=== PATIENT | male | born 1955 | race Caucasian/White ===

== ENCOUNTER 2018-06-13 12:57 | Outpatient (RCR) | payer SELFPAY ==
[~2018-06-13 12:57] MED LIST: CPR500T PO; CYCL10TA9 PO; DENOSUMAB 120 MG/1.7 ML (XGEVA) SQ SCH; HYDR1TAB8 OP; NAPR220T76
[2018-06-13 13:31] LABS: BASOPHILS % (AUTO) 0 % (0-10); EOSINOPHILS # (AUTO) 0.2 10^3/uL (0.0-0.3); EOSINOPHILS % (AUTO) 3 % (0-10); HEMATOCRIT 38 % (40-54); LYMPHOCYTES # (AUTO) 1.2 X 10^3 (1.0-4.0); LYMPHOCYTES % (AUTO) 25 % (12-44); MEAN CORPUSCULAR HEMOGLOBIN 30 PG (25-34); MEAN CORPUSCULAR HGB CONC 34 G/DL (32-36); MEAN CORPUSCULAR VOLUME 87 FL (80-99); MEAN PLATELET VOLUME 9.8 FL (7.4-10.4); MONOCYTES # (AUTO) 0.3 X 10^3 (0.0-1.0); MONOCYTES % (AUTO) 7 % (0-12); NEUTROPHILS % (AUTO) 64 % (42-75); PLATELET COUNT 191 10^3/uL (130-400); RED BLOOD COUNT 4.37 10^6/uL (4.35-5.85); RED CELL DISTRIBUTION WIDTH 15.4 % (10.0-14.5); WHITE BLOOD COUNT 4.7 10^3/uL (4.3-11.0)
[2018-06-13 13:51] LABS: ALANINE AMINOTRANSFERASE 18 U/L (0-55); ALKALINE PHOSPHATASE 102 U/L (40-136); BILIRUBIN,TOTAL 0.3 MG/DL (0.1-1.0); BUN/CREATININE RATIO 29; CALCIUM 8.8 MG/DL (8.5-10.1); CARBON DIOXIDE 23 MMOL/L (21-32); CHLORIDE 111 MMOL/L (98-107); CREATININE SERUM 0.65 MG/DL (0.60-1.30); GFR ESTIMATED > 60; GLUCOSE 117 MG/DL (70-105); POTASSIUM 4.4 MMOL/L (3.6-5.0); SODIUM 141 MMOL/L (135-145); TOTAL PROTEIN 6.6 GM/DL (6.4-8.2)
== END 2018-06-23 | disposition home or self-care (01) ==
LOC: ONC 12:57
PROVIDERS: ATTEND Internal Medicine Hematology & Oncology
DX: C61 Malignant neoplasm of prostate (principal); C79.51 Secondary malignant neoplasm of bone; R59.1 Generalized enlarged lymph nodes; R91.8 Other nonspecific abnormal finding of lung field; J84.10 Pulmonary fibrosis, unspecified; Z79.899 Other long term (current) drug therapy
CPT/HCPCS: 80053; 84153; 85025; 99213

== ENCOUNTER 2018-08-21 14:08 | Outpatient (RCR) | payer MEDICAID ==
[~2018-08-21 14:08] MED LIST changes: +[UNRECOGNIZED DRUG - REMARK] SQ SCH
[2018-08-21 14:18] LABS: BASOPHILS % (AUTO) 0 % (0-10); EOSINOPHILS # (AUTO) 0.1 10^3/uL (0.0-0.3); EOSINOPHILS % (AUTO) 1 % (0-10); HEMATOCRIT 42 % (40-54); HEMOGLOBIN 14.7 G/DL (13.3-17.7); LYMPHOCYTES # (AUTO) 1.4 X 10^3 (1.0-4.0); LYMPHOCYTES % (AUTO) 19 % (12-44); MEAN CORPUSCULAR HEMOGLOBIN 30 PG (25-34); MEAN CORPUSCULAR HGB CONC 35 G/DL (32-36); MEAN CORPUSCULAR VOLUME 86 FL (80-99); MEAN PLATELET VOLUME 9.4 FL (7.4-10.4); MONOCYTES # (AUTO) 0.6 X 10^3 (0.0-1.0); MONOCYTES % (AUTO) 7 % (0-12); NEUTROPHILS # (AUTO) 5.3 X 10^3 (1.8-7.8); NEUTROPHILS % (AUTO) 72 % (42-75); PLATELET COUNT 223 10^3/uL (130-400); RED BLOOD COUNT 4.89 10^6/uL (4.35-5.85); RED CELL DISTRIBUTION WIDTH 14.7 % (10.0-14.5); WHITE BLOOD COUNT 7.4 10^3/uL (4.3-11.0)
[2018-08-21 14:40] LABS: ALANINE AMINOTRANSFERASE 19 U/L (0-55); ALBUMIN 4.4 GM/DL (3.2-4.5); ALKALINE PHOSPHATASE 89 U/L (40-136); BILIRUBIN,TOTAL 0.4 MG/DL (0.1-1.0); BUN/CREATININE RATIO 18; CALCIUM 9.1 MG/DL (8.5-10.1); CARBON DIOXIDE 24 MMOL/L (21-32); CHLORIDE 107 MMOL/L (98-107); CREATININE SERUM 0.67 MG/DL (0.60-1.30); GFR ESTIMATED > 60; GLUCOSE 96 MG/DL (70-105); POTASSIUM 4.2 MMOL/L (3.6-5.0); SODIUM 139 MMOL/L (135-145); TOTAL PROTEIN 7.3 GM/DL (6.4-8.2)
[2018-09-13] MEDS ORDERED: BENZ-13 PO (16:48)
[2018-09-13] MEDS ORDERED: PRD20T PO (16:48)
[2018-09-13] MEDS ORDERED: IPRA3AMP31 IH (16:48)
== END 2018-09-19 14:44 | disposition home or self-care (01) ==
LOC: ONC 14:08
PROVIDERS: ATTEND Internal Medicine Hematology & Oncology
DX: C61 Malignant neoplasm of prostate (principal); C79.51 Secondary malignant neoplasm of bone; Z79.899 Other long term (current) drug therapy
CPT/HCPCS: 36415; 80053; 84153; 85025; 96372; 96402

== ENCOUNTER 2018-09-13 14:37 | Emergency (ER) | payer MEDICAID, OTHER ==
[~2018-09-13] VITALS: Ht 182.9 cm; Wt 81.6 kg
[~2018-09-13 14:37] MED LIST changes: -DENOSUMAB 120 MG/1.7 ML (XGEVA) SQ SCH; -[UNRECOGNIZED DRUG - REMARK] SQ SCH
--- NOTE | 2018-09-13 15:36 | Diagnostic Imaging Report ---
INDICATION: Shortness of air. TIME OF EXAM: 03:47 p.m. Correlation is made with prior study from 03/22/2009. FINDINGS: The lungs are hyperinflated consistent with COPD. No definite infiltrate is identified. No effusion or pneumothorax is seen. The heart size is stable. IMPRESSION: COPD. No acute feature is detected. Dictated by: Dictated on workstation # [id number]
--- NOTE | 2018-09-13 15:43 | ED Cough/URI ---
General Chief Complaint: Respiratory Problems Stated Complaint: POSS PNEUMONIA Nursing Triage Note: THE PT IS AMBULATORY TO THE ROOM WITHOUT DIFFICULTY. NO DISTRESS IS SEEN ON ARRIVAL. LOC IS NORMAL FOR THE. History of Present Illness Date Seen by Provider: Sep 13, 2018 Time Seen by Provider: 15:30 Initial Comments 63-year-old male reports for cough and SOA. He has a history of prostate cancer and is being treated with oral chemotherapy. He reports over the last 3-4 days progressive weakness. He denies fever. His cough has been productive at times. Timing/Duration: changing over time Severity/Quality: dry cough, productive cough Prior Episodes/Possible Cause: occasional episodes Associated Symptoms: cough, nasal congestion, shortness of breath Allergies and Home Medications Allergies Uncoded Allergies: [id number] (NO ALLERGY INFORMATION) (Allergy, Mild, 03/22/09) Home Medications Benzonatate 100 Mg Capsule, 100 MG PO Q8H PRN for COUGH Prescribed by: CHEMA MAHONEY on 09/13/188 Ciprofloxacin 500 Mg Tablet, 1 TAB PO BID FOR INFECTION Prescribed by: ELANA GIBSON on 03/22/09 1543 Cyclobenzaprine Hcl 10 Mg Tablet, 1 EACH PO TID PRN FOR MUSCLE SPASMS Prescribed by: ELANA GIBSON on 03/22/09 1543 Hydrocodone Bit/Ibuprofen 1 Each Tablet, 1 EACH OP Q 4 - 6 HRS PRN FOR PAIN Prescribed by: ELANA GIBSON on 03/22/09 1543 Ipratropium/Albuterol Sulfate 3 Ml Ampul.neb, 3 ML IH Q4H PRN for SHORTNESS OF BREATH Prescribed by: CHEMA MAHONEY on 09/13/181647 Prednisone 20 Mg Tab, 20 MG PO DAILY Prescribed by: CHEMA MAHONEY on 09/13/18 1648 Patient Home Medication List Home Medication List Reviewed: Yes Review of Systems Review of Systems Constitutional: no symptoms reported, see HPI Respiratory: see HPI, cough, dyspnea on exertion All Other Systems Reviewed Negative Unless Noted: Yes Past Wrdrkft-Yxrmcx-Dsothm Hx Past Med/Social Hx: Reviewed Nursing Past Med/Soc Hx Patient Social History Recent Foreign Travel: No Contact w/Someone Who Travel: No Recent Infectious Disease Expo: No Physical Exam Vital Signs - First Documented 09/13/18 09/13/18 15:15 16:14 Temp 98.6 Pulse 96 Resp 20 B/P (MAP) 180/100 (126) Pulse Ox 88 O2 Delivery Room Air O2 Flow Rate 1.00 Capillary Refill : Less Than 3 Seconds Height: 6'0" Weight: 180lbs. oz. [id number]; BMI Method:Estimated General Appearance: WD/WN, no apparent distress Eyes: Bilateral Eye Normal Inspection, Bilateral Eye PERRL, Bilateral Eye EOMI HEENT: PERRL/EOMI, normal ENT inspection, TMs normal, pharynx normal Neck: non-tender, full range of motion, supple, normal inspection Respiratory: chest non-tender, no respiratory distress, wheezing (expiratory) Cardiovascular: normal peripheral pulses, regular rate, rhythm Gastrointestinal: normal bowel sounds, non tender, soft Neurologic/Psychiatric: no motor/sensory deficits, alert, normal mood/affect, oriented x 3 Skin: normal color, warm/dry Progress/Results/Core Measures Suspected Sepsis Recent Fever Within 48 Hours: No Infection Criteria Present: None New/Unexplained Altered Menta: No Sepsis Screen: No Definite Risk SIRS Temperature:98.6 Pulse: 96 Respiratory Rate: 20 Laboratory Tests 09/13/18 15:40: White Blood Count 5.2 Blood Pressure 180 /100 Mean: 126 Laboratory Tests 09/13/18 15:40: Creatinine 0.78, Platelet Count 200, Total Bilirubin 0.5 Results/Orders Lab Results Laboratory Tests Test 09/13/18 15:40 Range/Units White Blood Count 5.2 4.3-11.0 10^3/uL Red Blood Count 4.96 4.35-5.85 10^6/uL Hemoglobin 14.6 13.3-17.7 G/DL Hematocrit 43 40-54 % Mean Corpuscular Volume 87 80-99 FL Mean Corpuscular Hemoglobin 29 25-34 PG Mean Corpuscular Hemoglobin Concent 34 32-36 G/DL Red Cell Distribution Width 14.9 H 10.0-14.5 % Platelet Count 200 130-400 10^3/uL Mean Platelet Volume 9.6 7.4-10.4 FL Neutrophils (%) (Auto) 71 42-75 % Lymphocytes (%) (Auto) 14 12-44 % Monocytes (%) (Auto) 13 H 0-12 % Eosinophils (%) (Auto) 3 0-10 % Basophils (%) (Auto) 0 0-10 % Neutrophils # (Auto) 3.7 1.8-7.8 X 10^3 Lymphocytes # (Auto) 0.7 L 1.0-4.0 X 10^3 Monocytes # (Auto) 0.7 0.0-1.0 X 10^3 Eosinophils # (Auto) 0.1 0.0-0.3 10^3/uL Basophils # (Auto) 0.0 0.0-0.1 10^3/uL Sodium Level 137 135-145 MMOL/L Potassium Level 4.2 3.6-5.0 MMOL/L Chloride Level 105 98-107 MMOL/L Carbon Dioxide Level 22 21-32 MMOL/L Anion Gap 10 5-14 MMOL/L Blood Urea Nitrogen 17 7-18 MG/DL Creatinine 0.78 0.60-1.30 MG/DL Estimat Glomerular Filtration Rate > 60 BUN/Creatinine Ratio 22 Glucose Level 102 70-105 MG/DL Calcium Level 8.6 8.5-10.1 MG/DL Corrected Calcium 8.2 L 8.5-10.1 MG/DL Total Bilirubin 0.5 0.1-1.0 MG/DL Aspartate Amino Transf (AST/SGOT) 18 5-34 U/L Alanine Aminotransferase (ALT/SGPT) 17 0-55 U/L Alkaline Phosphatase 105 40-136 U/L Total Protein 7.5 6.4-8.2 GM/DL Albumin 4.5 3.2-4.5 GM/DL My Orders Orders - CHEMA MAHONEY Chest Pa/Lat (2 View) (09/13/18 15:14) Cbc With Automated Diff (09/13/18 15:14) Comprehensive Metabolic Panel (09/13/18 15:14) Albuterol/Ipra Inhalation Soln (Duoneb I (09/13/18 16:15) Svn Small Volume Nebulizer (09/13/18 16:08) Dexamethasone Injection (Decadron Inject (09/13/18 16:15) Medications Given in ED Current Medications Medications Dose Ordered Sig/Taryn Route Start Time Stop Time Status Last Admin Dose Admin Albuterol/ Ipratropium 3 ml ONCE ONCE INH 09/13/18 16:15 09/13/18 16:16 DC 09/13/18 16:13 3 ML Dexamethasone Sodium Phosphate 10 mg ONCE ONCE IV 09/13/18 16:15 12/21/18 16:16 DC 09/13/18 16:26 10 MG Vital Signs/I&O 09/13/18 09/13/18 09/13/18 15:15 16:14 17:16 Temp 98.6 98.6 Pulse 96 95 Resp 20 18 B/P (MAP) 180/100 (126) 170/88 (115) Pulse Ox 88 95 95 O2 Delivery Room Air Nasal Cannula O2 Flow Rate 1.00 Capillary Refill : Less Than 3 Seconds Blood Pressure Mean: 126 Progress Note : Time: 15:30 Progress Note Patient seen and evaluated, room air SaO2 88%, placed on O2 per nasal cannula at 2 L. Immediately improved SaO2 95%. Will obtain labs and chest x-ray. 1600 RT for DuoNeb treatment. Decadron 10 mg IV 1620 improved breath sounds with less wheezing. Patient denies chest tightness. O2 per nasal cannula decreased to 1 L, maintaining SaO2 greater than 92%. 1645 O2 per nasal cannula discontinued, maintaining SaO2 greater than 94% with conversation. Discharge instructions and return precautions reviewed with the patient and his . He will continue on DuoNeb treatments at home, he has a nebulizer machine. Diagnostic Imaging Diagonstic Imaging: Xray Plain Films/CT/US/NM/MRI: chest Comments NAME: [facility] REC#: [id number] PT STATUS: REG ER : 1955 PHYSICIAN: CHEMA MAHONEY ADMIT DATE: 09/13/18/ER Draft Date of Exam:09/13/18 CHEST PA/LAT (2 VIEW) INDICATION: Shortness of air. TIME OF EXAM: 03:47 p.m. Correlation is made with prior study from 03/22/2009. FINDINGS: The lungs are hyperinflated consistent with COPD. No definite infiltrate is identified. No effusion or pneumothorax is seen. The heart size is stable. IMPRESSION: COPD. No acute feature is detected. Dictated on workstation # [id number] Dict: 09/13/18 1531 Trans: 09/13/18 1535 [id number] Interpreted by: JO FINN MD Electronically signed by: Departure Impression Primary Impression: Bronchitis Disposition: 01 HOME, SELF-CARE Condition: Improved Departure-Patient Inst. Decision time for Depature: 16:40 Referrals: RAY,TJ C MD (PCP) Primary Care Physician Patient Instructions: Acute Bronchitis, Adult (DC) Add. Discharge Instructions: Take medication as prescribed. Follow-up with your primary care provider in 2-3 days if symptoms are not improving or worsen. Increase your food and water intake. You may use Tylenol 650 mg alternating with ibuprofen 600 mg every 4 hours for fever or pain. Return to emergency department if difficulty breathing, symptoms worsen, fever greater than 101 not relieved by Tylenol or ibuprofen, or new problems. All discharge instructions reviewed with patient and/or family. Voiced understanding. Scripts Ipratropium/Albuterol Sulfate (Iprat-Albut 0.5-3(2.5) mg/3 ml) 3 Ml Ampul.neb 3 ML IH Q4H PRN for SHORTNESS OF BREATH, #28 EACH 2 Refills Prov: CHEMA MAHONEY 09/13/18 Benzonatate (Tessalon Perle) 100 Mg Capsule 100 MG PO Q8H PRN for COUGH, #12 CAP 0 Refills Prov: CHEMA MAHONEY 09/13/18 Prednisone (Prednisone) 20 Mg Tab 20 MG PO DAILY, #18 TAB 0 Refills Prov: CHEMA MAHONEY 09/13/18 CHEMA MAHONEY Sep 13, 2018 15:43
[2018-09-13 15:45] LABS: BASOPHILS % (AUTO) 0 % (0-10); EOSINOPHILS # (AUTO) 0.1 10^3/uL (0.0-0.3); EOSINOPHILS % (AUTO) 3 % (0-10); HEMATOCRIT 43 % (40-54); HEMOGLOBIN 14.6 G/DL (13.3-17.7); LYMPHOCYTES # (AUTO) 0.7 X 10^3 (1.0-4.0); LYMPHOCYTES % (AUTO) 14 % (12-44); MEAN CORPUSCULAR HEMOGLOBIN 29 PG (25-34); MEAN CORPUSCULAR HGB CONC 34 G/DL (32-36); MEAN CORPUSCULAR VOLUME 87 FL (80-99); MEAN PLATELET VOLUME 9.6 FL (7.4-10.4); MONOCYTES # (AUTO) 0.7 X 10^3 (0.0-1.0); MONOCYTES % (AUTO) 13 % (0-12); NEUTROPHILS # (AUTO) 3.7 X 10^3 (1.8-7.8); NEUTROPHILS % (AUTO) 71 % (42-75); PLATELET COUNT 200 10^3/uL (130-400); RED BLOOD COUNT 4.96 10^6/uL (4.35-5.85); RED CELL DISTRIBUTION WIDTH 14.9 % (10.0-14.5); WHITE BLOOD COUNT 5.2 10^3/uL (4.3-11.0)
[2018-09-13 16:04] LABS: ALANINE AMINOTRANSFERASE 17 U/L (0-55); ALBUMIN 4.5 GM/DL (3.2-4.5); ALKALINE PHOSPHATASE 105 U/L (40-136); BILIRUBIN,TOTAL 0.5 MG/DL (0.1-1.0); BUN/CREATININE RATIO 22; CALCIUM 8.6 MG/DL (8.5-10.1); CARBON DIOXIDE 22 MMOL/L (21-32); CHLORIDE 105 MMOL/L (98-107); CREATININE SERUM 0.78 MG/DL (0.60-1.30); GFR ESTIMATED > 60; GLUCOSE 102 MG/DL (70-105); POTASSIUM 4.2 MMOL/L (3.6-5.0); SODIUM 137 MMOL/L (135-145); TOTAL PROTEIN 7.5 GM/DL (6.4-8.2)
[2018-09-13] MEDS: RT-ALBUTEROL/IPRATROPIUM 3 ML (DUONEB) VIAL INH ONE (16:13)
[2018-09-13] MEDS: DEXAMETHASONE 10 MG/ML (DECADRON) 1 ML VIAL IV ONE (16:26)
[2018-09-13] MEDS ORDERED: IPRA3AMP31 IH (16:48)
[2018-09-13] MEDS ORDERED: PRD20T PO (16:48)
[2018-09-13] MEDS ORDERED: BENZ-13 PO (16:48)
[2018-09-13 17:16] VITALS: BP 170/88
== END 2018-09-13 17:00 | disposition home or self-care (01) ==
LOC: EDUNIT# 14:37 → ER 14:38
DX: J40 Bronchitis, not specified as acute or chronic (principal); Z85.46 Personal history of malignant neoplasm of prostate
CPT/HCPCS: 36415; 71046; 80053; 85025; 94640

== ENCOUNTER 2018-12-13 13:01 | Outpatient (RCR) | payer MEDICAID ==
[2018-10-18 10:17] LABS: BASOPHILS % (AUTO) 0 % (0-10); EOSINOPHILS # (AUTO) 0.1 10^3/uL (0.0-0.3); EOSINOPHILS % (AUTO) 2 % (0-10); HEMATOCRIT 42 % (40-54); LYMPHOCYTES # (AUTO) 1.5 X 10^3 (1.0-4.0); LYMPHOCYTES % (AUTO) 22 % (12-44); MEAN CORPUSCULAR HEMOGLOBIN 30 PG (25-34); MEAN CORPUSCULAR HGB CONC 34 G/DL (32-36); MEAN CORPUSCULAR VOLUME 88 FL (80-99); MEAN PLATELET VOLUME 9.8 FL (7.4-10.4); MONOCYTES # (AUTO) 0.7 X 10^3 (0.0-1.0); MONOCYTES % (AUTO) 11 % (0-12); NEUTROPHILS # (AUTO) 4.4 X 10^3 (1.8-7.8); NEUTROPHILS % (AUTO) 65 % (42-75); PLATELET COUNT 207 10^3/uL (130-400); RED CELL DISTRIBUTION WIDTH 13.8 % (10.0-14.5); WHITE BLOOD COUNT 6.7 10^3/uL (4.3-11.0)
[2018-10-18 10:40] LABS: ALANINE AMINOTRANSFERASE 12 U/L (0-55); ALBUMIN 4.4 GM/DL (3.2-4.5); ALKALINE PHOSPHATASE 134 U/L (40-136); BILIRUBIN,TOTAL 0.4 MG/DL (0.1-1.0); BUN/CREATININE RATIO 26; CALCIUM 9.3 MG/DL (8.5-10.1); CARBON DIOXIDE 23 MMOL/L (21-32); CHLORIDE 109 MMOL/L (98-107); CREATININE SERUM 0.73 MG/DL (0.60-1.30); GFR ESTIMATED > 60; GLUCOSE 85 MG/DL (70-105); POTASSIUM 4.8 MMOL/L (3.6-5.0); SODIUM 140 MMOL/L (135-145); TOTAL PROTEIN 7.5 GM/DL (6.4-8.2)
[~2018-12-13 13:01] MED LIST changes: +BENZ-13 PO; +DENOSUMAB 120 MG/1.7 ML (XGEVA) SQ SCH; +IPRA3AMP31 IH; +PRD20T PO; +[UNRECOGNIZED DRUG - REMARK] SQ SCH; +[UNRECOGNIZED DRUG - REMARK] SQ SCH
[2018-12-13 13:19] LABS: BASOPHILS % (AUTO) 0 % (0-10); EOSINOPHILS # (AUTO) 0.1 10^3/uL (0.0-0.3); EOSINOPHILS % (AUTO) 1 % (0-10); HEMATOCRIT 38 % (40-54); HEMOGLOBIN 12.7 G/DL (13.3-17.7); LYMPHOCYTES # (AUTO) 1.7 X 10^3 (1.0-4.0); LYMPHOCYTES % (AUTO) 18 % (12-44); MEAN CORPUSCULAR HEMOGLOBIN 29 PG (25-34); MEAN CORPUSCULAR HGB CONC 33 G/DL (32-36); MEAN CORPUSCULAR VOLUME 87 FL (80-99); MEAN PLATELET VOLUME 9.8 FL (7.4-10.4); MONOCYTES # (AUTO) 0.9 X 10^3 (0.0-1.0); MONOCYTES % (AUTO) 10 % (0-12); NEUTROPHILS # (AUTO) 6.7 X 10^3 (1.8-7.8); NEUTROPHILS % (AUTO) 72 % (42-75); PLATELET COUNT 324 10^3/uL (130-400); RED CELL DISTRIBUTION WIDTH 13.9 % (10.0-14.5); WHITE BLOOD COUNT 9.3 10^3/uL (4.3-11.0)
[2018-12-13 13:40] LABS: ALANINE AMINOTRANSFERASE 14 U/L (0-55); ALBUMIN 4.1 GM/DL (3.2-4.5); ALKALINE PHOSPHATASE 208 U/L (40-136); BILIRUBIN,TOTAL 0.3 MG/DL (0.1-1.0); BUN/CREATININE RATIO 25; CALCIUM 9.1 MG/DL (8.5-10.1); CARBON DIOXIDE 24 MMOL/L (21-32); CHLORIDE 105 MMOL/L (98-107); GFR ESTIMATED > 60; GLUCOSE 95 MG/DL (70-105); SODIUM 138 MMOL/L (135-145); TOTAL PROTEIN 7.3 GM/DL (6.4-8.2)
== END 2018-12-18 | disposition home or self-care (01) ==
LOC: ONC 13:01
PROVIDERS: ATTEND Internal Medicine Hematology & Oncology
DX: C61 Malignant neoplasm of prostate (principal); C79.51 Secondary malignant neoplasm of bone; Z79.899 Other long term (current) drug therapy
CPT/HCPCS: 36415; 80053; 84153; 85025; 96372; 96402

== ENCOUNTER 2019-01-06 14:47 | Inpatient (IN) | payer MEDICAID, OTHER ==
[~2019-01-06] VITALS: Ht 182.9 cm; Wt 58.9 kg
[~2019-01-06 14:47] MED LIST changes: -DENOSUMAB 120 MG/1.7 ML (XGEVA) SQ SCH; -[UNRECOGNIZED DRUG - REMARK] SQ SCH; -[UNRECOGNIZED DRUG - REMARK] SQ SCH
[2019-01-06] MEDS ORDERED: fentaNYL INJECTION 100 MCG/2 ML AMP IVP STA (15:08)
[2019-01-06] MEDS ORDERED: fentaNYL INJECTION 100 MCG/2 ML AMP ONE (15:09)
[2019-01-06] MEDS ORDERED: OXYC-471 PO (15:10)
[2019-01-06] MEDS ORDERED: ONDA8TAB12 PO (15:10)
[2019-01-06] MEDS ORDERED: MORP15TA PO (15:10)
[2019-01-06] MEDS ORDERED: TAMS0.4C98 PO (15:10)
[2019-01-06] MEDS ORDERED: BICA50TA5 (15:10)
[2019-01-06] MEDS ORDERED: FINA5TAB6 PO (15:10)
[2019-01-06] MEDS ORDERED: NS IV 1000 ML 1,000 ML IV STA (15:13)
[2019-01-06 15:16] LABS: BASOPHILS % (AUTO) 0 % (0-10); EOSINOPHILS % (AUTO) 0 % (0-10); HEMATOCRIT 30 % (40-54); HEMOGLOBIN 9.8 G/DL (13.3-17.7); LYMPHOCYTES # (AUTO) 0.8 X 10^3 (1.0-4.0); LYMPHOCYTES % (AUTO) 9 % (12-44); MEAN CORPUSCULAR HEMOGLOBIN 28 PG (25-34); MEAN CORPUSCULAR HGB CONC 32 G/DL (32-36); MEAN CORPUSCULAR VOLUME 87 FL (80-99); MEAN PLATELET VOLUME 9.5 FL (7.4-10.4); MONOCYTES # (AUTO) 1.1 X 10^3 (0.0-1.0); MONOCYTES % (AUTO) 12 % (0-12); NEUTROPHILS # (AUTO) 7.3 X 10^3 (1.8-7.8); NEUTROPHILS % (AUTO) 79 % (42-75); PLATELET COUNT 199 10^3/uL (130-400); RED CELL DISTRIBUTION WIDTH 14.8 % (10.0-14.5); WHITE BLOOD COUNT 9.2 10^3/uL (4.3-11.0)
[2019-01-06 15:26] LABS: INR 1.2 (0.8-1.4); PROTHROMBIN TIME PATIENT 15.4 SEC (12.2-14.7)
[2019-01-06 15:31] LABS: ALANINE AMINOTRANSFERASE 26 U/L (0-55); ALBUMIN 3.2 GM/DL (3.2-4.5); ALKALINE PHOSPHATASE 311 U/L (40-136); BILIRUBIN,TOTAL 0.4 MG/DL (0.1-1.0); BUN/CREATININE RATIO 22; CALCIUM 8.1 MG/DL (8.5-10.1); CARBON DIOXIDE 28 MMOL/L (21-32); CHLORIDE 91 MMOL/L (98-107); CREATININE SERUM 0.64 MG/DL (0.60-1.30); GFR ESTIMATED > 60; GLUCOSE 114 MG/DL (70-105); POTASSIUM 3.7 MMOL/L (3.6-5.0); SODIUM 130 MMOL/L (135-145); TOTAL PROTEIN 6.4 GM/DL (6.4-8.2)
--- NOTE | 2019-01-06 16:13 | Diagnostic Imaging Report ---
INDICATION: Weakness. Frontal chest obtained at 3:56 p.m. is compared to 09/13/2018. FINDINGS: Heart is borderline in size. There is some mild infiltrate in the right lung base, suspect early pneumonia. Left lung is clear. There is no pneumothorax or pleural fluid. IMPRESSION: Mild infiltrate in the right lung base, question pneumonia. Followup is recommended. Dictated by: Dictated on workstation # [id number]
--- NOTE | 2019-01-06 16:18 | ED General ---
General Chief Complaint: General Problems/Pain Stated Complaint: WEAKNESS;CANCER Nursing Triage Note: PT PRESENTS TO ED WITH COMPLAINTS OF LOWER PLEVIC PAIN AND SOA. PT REPROTS INCREASED GENERALIZED WEAKNESS. PT STATES THIS WEEK HE HASNT HARDLY WALKED. Nursing Sepsis Screen: No Definite Risk Source of Information: Patient Exam Limitations: No Limitations History of Present Illness Date Seen by Provider: Jan 06, 2019 Time Seen by Provider: 15:01 Initial Comments Here with report of lower pelvic pain as well as shortness of breath. Increasing weakness over the last week. He is essentially unable to walk currently due to the weakness. Does have prostate cancer and has had therapy previously and he is being evaluated for radiation therapy currently. Went to clinic today but was unable to even stand. On arrival, oxygen saturation was 78 percent on room air. Normal and oxygen. Denies nausea or vomiting. Admits that he has not been eating or drinking well. Timing/Duration: 2-3 Days Severity: Moderate, Severe Associated Systoms: No Chest Pain, No Cough, No Fever/Chills, No Nausea/ Vomiting, No Shortness of Air; Weakness Allergies and Home Medications Allergies Coded Allergies: No Known Drug Allergies (Unverified , 01/06/19) Patient Home Medication List Home Medication List Reviewed: Yes Review of Systems Review of Systems Constitutional: see HPI; No chills, No fever; weakness EENTM: no symptoms reported Respiratory: cough, short of breath Cardiovascular: No chest pain, No edema Gastrointestinal: No abdominal pain; loss of appetite; No nausea, No vomiting Genitourinary: decreased output; No dysuria Musculoskeletal: joint pain, muscle pain Skin: no symptoms reported Psychiatric/Neurological: No Symptoms Reported Hematologic/Lymphatic: No Symptoms Reported All Other Systems Reviewed Negative Unless Noted: Yes Past Mwznbvu-Aneiyo-Hyofsz Hx Past Med/Social Hx: Reviewed Nursing Past Med/Soc Hx Patient Social History Alcohol Use: Denies Use Recreational Drug Use: No Smoking Status: Former Smoker Former Smoker, Quit: Nov 05, 2017 Recent Foreign Travel: No Contact w/Someone Who Travel: No Recent Infectious Disease Expo: No Recent Hopitalizations: No Physical Abuse: No Sexual Abuse: No Mistreated: No Fear: No Seasonal Allergies Seasonal Allergies: No Past Medical History Surgeries: No Respiratory: No Cardiac: No Neurological: No Genitourinary: No Gastrointestinal: No Musculoskeletal: No Endocrine: No HEENT: No Cancer: Yes Prostate Psychosocial: No Integumentary: No Blood Disorders: No Adverse Reaction/Blood Tranf: No Family Medical History Reviewed Nursing Family Hx Physical Exam-Suspected Sepsis Physical Exam Vital Signs Vital Signs - First Documented 01/06/19 14:58 Temp 96.6 Pulse 90 Resp 12 B/P (MAP) 104/75 (85) Pulse Ox 98 O2 Delivery Nasal Cannula O2 Flow Rate 4.00 Capillary Refill : Less Than 3 Seconds Blood Pressure Mean: 85 Height, Weight, BMI Height: 6'0" Weight: 127lbs. oz. 57.316755bt; BMI Method:Stated General Appearance: Chronically ill, Mild Distress, Thin HEENT: PERRL/EOMI, Pharynx Normal Neck: Non Tender, Supple Respiratory: No Accessory Muscle Use, Crackles; No Wheezing (bilateral bases) Cardiovascular: Regular Rate, Rhythm, No Murmur Gastrointestinal: Non Tender, Soft Back: Normal Inspection, No CVA Tenderness, No Vertebral Tenderness Extremity: Normal Range of Motion, Other (tender in the left pelvis area) Neurologic/Psychiatric: Alert, Oriented x3 Skin: warm/dry, pallor Focused Exam Lactate Level 01/06/19 15:00: Lactic Acid Level 1.34 Lactic Acid Level Laboratory Tests Test 01/06/19 15:00 Lactic Acid Level 1.34 MMOL/L (0.50-2.00) Progress/Results/Core Measures Suspected Sepsis Recent Fever Within 48 Hours: No Infection Criteria Present: None New/Unexplained Altered Menta: No Sepsis Screen: No Definite Risk SIRS Temperature:96.6 Pulse: 90 Respiratory Rate: 12 Laboratory Tests 01/06/19 15:00: White Blood Count 9.2 Blood Pressure 104 /75 Mean: 85 01/06/19 15:00: Lactic Acid Level 1.34 Laboratory Tests 01/06/19 15:00: Creatinine 0.64, INR Comment 1.2, Platelet Count 199, Total Bilirubin 0.4 Results/Orders Lab Results Laboratory Tests Test 01/06/19 15:00 01/06/19 17:04 Range/Units White Blood Count 9.2 4.3-11.0 10^3/uL Red Blood Count 3.49 L 4.35-5.85 10^6/uL Hemoglobin 9.8 L 13.3-17.7 G/DL Hematocrit 30 L 40-54 % Mean Corpuscular Volume 87 80-99 FL Mean Corpuscular Hemoglobin 28 25-34 PG Mean Corpuscular Hemoglobin Concent 32 32-36 G/DL Red Cell Distribution Width 14.8 H 10.0-14.5 % Platelet Count 199 130-400 10^3/uL Mean Platelet Volume 9.5 7.4-10.4 FL Neutrophils (%) (Auto) 79 H 42-75 % Lymphocytes (%) (Auto) 9 L 12-44 % Monocytes (%) (Auto) 12 0-12 % Eosinophils (%) (Auto) 0 0-10 % Basophils (%) (Auto) 0 0-10 % Neutrophils # (Auto) 7.3 1.8-7.8 X 10^3 Lymphocytes # (Auto) 0.8 L 1.0-4.0 X 10^3 Monocytes # (Auto) 1.1 H 0.0-1.0 X 10^3 Eosinophils # (Auto) 0.0 0.0-0.3 10^3/uL Basophils # (Auto) 0.0 0.0-0.1 10^3/uL Prothrombin Time 15.4 H 12.2-14.7 SEC INR Comment 1.2 0.8-1.4 Activated Partial Thromboplast Time 45 H 24-35 SEC Sodium Level 130 L 135-145 MMOL/L Potassium Level 3.7 3.6-5.0 MMOL/L Chloride Level 91 L 98-107 MMOL/L Carbon Dioxide Level 28 21-32 MMOL/L Anion Gap 11 5-14 MMOL/L Blood Urea Nitrogen 14 7-18 MG/DL Creatinine 0.64 0.60-1.30 MG/DL Estimat Glomerular Filtration Rate > 60 BUN/Creatinine Ratio 22 Glucose Level 114 H 70-105 MG/DL Lactic Acid Level 1.34 0.50-2.00 MMOL/L Calcium Level 8.1 L 8.5-10.1 MG/DL Corrected Calcium 8.7 8.5-10.1 MG/DL Total Bilirubin 0.4 0.1-1.0 MG/DL Aspartate Amino Transf (AST/SGOT) 59 H 5-34 U/L Alanine Aminotransferase (ALT/SGPT) 26 0-55 U/L Alkaline Phosphatase 311 H 40-136 U/L Lactate Dehydrogenase 773 H 125-220 U/L Total Protein 6.4 6.4-8.2 GM/DL Albumin 3.2 3.2-4.5 GM/DL Urine Color YELLOW Urine Clarity CLEAR Urine pH 5 5-9 Urine Specific [place] 1.010 L 1.016-1.022 Urine Protein 3+ H NEGATIVE Urine Glucose (UA) NEGATIVE NEGATIVE Urine Ketones NEGATIVE NEGATIVE Urine Nitrite NEGATIVE NEGATIVE Urine Bilirubin NEGATIVE NEGATIVE Urine Urobilinogen 1 NORMAL MG/DL Urine Leukocyte Esterase NEGATIVE NEGATIVE Urine RBC (Auto) 2+ H NEGATIVE Urine RBC 0-2 /HPF Urine WBC 0-2 /HPF Urine Crystals NONE /LPF Urine Bacteria NEGATIVE /HPF Urine Casts PRESENT /LPF Urine Hyaline Casts 2-5 H /LPF Urine Mucus SMALL H /LPF Urine Culture Indicated NO My Orders Orders - QASIM FORDE MD Cbc With Automated Diff (01/06/19 15:08) Comprehensive Metabolic Panel (01/06/19 15:08) Blood Culture (01/06/19 15:08) Sputum Culture (01/06/19 15:08) Urinalysis (01/06/19 15:08) Urine Culture (01/06/19 15:08) Protime With Inr (01/06/19 15:08) Partial Thromboplastin Time (01/06/19 15:08) Chest 1 View, Ap/Pa Only (01/06/19 15:08) Ed Iv/Invasive Line Start (01/06/19 15:08) Vital Signs Adult Sepsis Patie Q15M (01/06/19 15:08) O2 (01/06/19 15:08) Remove Rings In Anticipation O (01/06/19 15:08) Lactic Acid Analyzer (01/06/19 15:08) Fentanyl Injection (Sublimaze Injection (01/06/19 15:08) Fentanyl Injection (Sublimaze Injection (01/06/19 15:09) Ns Iv 1000 Ml (Sodium Chloride 0.9%) (01/06/19 15:13) LDH (01/06/19 15:44) Ct Angio Chst/Abd/Pelv W (01/06/19 16:04) Iohexol Injection (Omnipaque 350 Mg/Ml 1 (01/06/19 16:30) Received Contrast (Hold Metformin- Contr (01/06/19 16:30) Piperacillin Sodium/Tazobactam (Zosyn Vi (01/06/19 17:45) Fentanyl Injection (Sublimaze Injection (01/06/19 17:45) Medications Given in ED Current Medications Medications Dose Ordered Sig/Taryn Route Start Time Stop Time Status Last Admin Dose Admin Iohexol 150 ml ONCE ONCE IV 01/06/19 16:30 01/06/19 16:32 DC 01/06/19 16:50 150 ML Vital Signs/I&O 01/06/19 14:58 Temp 96.6 Pulse 90 Resp 12 B/P (MAP) 104/75 (85) Pulse Ox 98 O2 Delivery Nasal Cannula O2 Flow Rate 4.00 Capillary Refill : Less Than 3 Seconds Blood Pressure Mean: 85 Progress Note : Progress Note Seen and evaluated. IV, labs, UA, chest x-ray, blood cultures and lactic acid ordered. Monitor patient. Normal saline 1 L bolus. Fentanyl [address] angiogram of the chest ordered and CT with contrast of the abdomen and pelvis ordered. Monitor patient. 1727: I did discuss the case with Dr. Araujo. She accepts patient for admission, inpatient status. Patient has right lower lobe pneumonia noted on chest x-ray. We will initiate Zosyn 4.5 g IV. Given his advanced stage of cancer and patient and his 's wishes for consideration for hospice at some point, we will go ahead and place palate care consult to establish goals of care and to discuss options as the patient and family would like. Dr. Araujo has requested consult with Dr. Keating which was placed. Also we will consult Dr. Fernandez in the morning. Findings concerns discussed with patient and family who agree with plan. Diagnostic Imaging Diagonstic Imaging: Xray Plain Films/CT/US/NM/MRI: chest Comments [facility]. [place], [place] NAME: KAIDEN TREVIZO Steve [facility] REC#: [id number] PT STATUS: REG ER : 1955 PHYSICIAN: QASIM FORDE MD ADMIT DATE: 01/06/19/ER Draft Date of Exam:01/06/19 CHEST 1 VIEW, AP/PA ONLY INDICATION: Weakness. Frontal chest obtained at 3:56 p.m. is compared to 09/13/2018. FINDINGS: Heart is borderline in size. There is some mild infiltrate in the right lung base, suspect early pneumonia. Left lung is clear. There is no pneumothorax or pleural fluid. IMPRESSION: Mild infiltrate in the right lung base, question pneumonia. Followup is recommended. Dictated on workstation # [id number] Dict: 01/06/19 1607 Trans: 01/06/19 1612 [id number] Interpreted by: RONALDO SYLVESTER MD Electronically signed by: Reviewed: Reviewed by Me Diagonstic Imaging: CT Plain Films/CT/US/NM/MRI: chest, abdomen, pelvis Comments [facility] [place] [place] NAME: KAIDEN TREVIZO [facility] REC#: [id number] PT STATUS: REG ER : 1955 PHYSICIAN: QASIM FORDE MD ADMIT DATE: 01/06/19/ER Draft Date of Exam:01/06/19 CT ANGIO CHST/ABD/PELV W PROCEDURE: CT angiography of the chest with contrast and CT abdomen and pelvis with contrast. TECHNIQUE: Multiple contiguous axial images were obtained through the chest, abdomen and pelvis after administration of intravenous contrast. Reconstructed MIP CT angiography acquisitions of the aorta were then performed. Auto Exposure Controls were utilized during the CT exam to meet ALARA standards for radiation dose reduction. INDICATION: Inability to walk. Chest pain. Shortness of breath. Constipation. History of prostate cancer. COMPARISON: CT abdomen and pelvis performed on 03/22/2009. ANGIOGRAPHIC FINDINGS: The aorta is normal in course and caliber. There is no dissection, aneurysm, or ulcerated plaque. The great vessels are normal in course and caliber. No pulmonary embolism is identified. The pulmonary arteries are normal in caliber. There is stenosis noted at the origin of the superior mesenteric artery caused by calcified atherosclerotic plaque. The superior mesenteric artery remains patent. The celiac, renal arteries, and inferior mesenteric artery are patent. There is apparent origin of the gastroduodenal artery from the celiac access, a normal variant. FINDINGS - CHEST: TRACHEA AND MAIN BRONCHI: Layering mucoid material is demonstrated at the level of the kellie, extending into the right and left mainstem bronchi. There is mucus plugging demonstrated in the smaller airway supplying the right lower lobe. LUNGS AND PLEURA: Moderate upper lobe predominant centrilobular emphysematous change is demonstrated in both lungs, with bullous change noted in both lung apices. There is an irregular focal nodular area in the right lung apex adjacent to pleural parenchymal scarring. This measures approximately 6 mm (image 11 series 5). There is linear scarring noted in the right upper lobe adjacent to the major fissure. There is streaky consolidation in the right lower lobe in the region of mucus plugging. Trace pleural fluid is noted adjacent to this. No pneumothorax. MEDIASTINUM AND XUAN: Mild heterogeneity of the right thyroid lobe, with suggestion of subcentimeter low-attenuation nodules. No mediastinal or hilar lymphadenopathy. Esophagus is nondistended. HEART: Heart is normal in size. No pericardial effusion. DIAPHRAGM: Unremarkable. CHEST WALL: Unremarkable. FINDINGS - ABDOMEN AND PELVIS: LIVER: Marked heterogeneous appearance of the liver. There is suggestion of multiple ill-defined low-attenuation lesions scattered throughout the hepatic parenchyma. There is a well-circumscribed low-attenuation lesion in the inferior right hepatic lobe which is unchanged dating back to 2008 and compatible with a cyst. GALLBLADDER: Normal CT appearance. BILE DUCTS: No biliary ductal dilatation. SPLEEN: Heterogeneous attenuation, likely due to phase of contrast imaging. No focal lesion is seen. PANCREAS: Mildly atrophic, otherwise unremarkable. No pancreatic ductal dilatation. ADRENAL GLANDS: Mild bilateral adrenal thickening without discrete nodularity. KIDNEYS AND URETERS: No hydronephrosis. Kidneys enhance symmetrically. Subcentimeter right renal hypodensity, too small to characterize, but likely representing a cyst. No suspicious mass. The visualized ureters are normal. STOMACH AND BOWEL: Stomach is collapsed. No bowel obstruction. No inflammatory changes. There is colonic diverticulosis, without evidence of acute diverticulitis. APPENDIX: Normal. PELVIC ORGANS/BLADDER: There is marked distention of the bladder. No focal thickening or discrete mass is identified. No bladder calculus. The prostate gland is heterogeneous, with ill-defined hyperattenuation noted in the superolateral aspect of the gland. PERITONEUM AND RETROPERITONEUM: No pneumoperitoneum. No abdominal free fluid or loculated collection. LYMPH NODES: No lymphadenopathy. ABDOMINAL WALL: There is a small amount of fluid in the right inguinal canal. BONES: Generalized increased sclerosis of the visualized bones, with scattered discrete sclerotic and lytic lesions noted in the spine, sternum, and ribs. No fracture or acute osseous abnormality is noted. There is superior endplate depression involving the L2 vertebral body, likely representing a Schmorl's node. IMPRESSION: No acute aortic abnormality. No evidence of aortic dissection or aneurysm. No pulmonary embolism is identified. There is marked calcified atherosclerotic plaque at the origin of the superior mesenteric artery, however, the artery remains patent distal to the origin. There is debris in the airways at the level of the kellie extending into the right and left mainstem bronchi, with mucus plugging noted in the right lower lobe. There is ill-defined streaky opacity in the right lower lobe in the region of mucus plugging. Pneumonia is a consideration for this finding. There is adjacent trace pleural fluid. There is a 6 mm spiculated nodule in the right lung apex. This may be related to scarring. Given patient's history of prostate cancer, consideration can be given to followup CT scan in 12 months to demonstrate stability. Recommendations are per Fleischner Society guidelines for followup of incidental pulmonary nodules (Radiology, 2017 Quirino;284(1):228-243). Subcentimeter low-attenuation thyroid nodules in the right thyroid lobe. These are of doubtful clinical significance. Dedicated thyroid ultrasound can be performed on a nonemergent basis, as indicated. Marked heterogeneity of the hepatic parenchyma. Although this may be at least in part due to phase of contrast imaging, overall findings are concerning for metastatic disease. This can be further evaluated with hepatic protocol MRI or CT scan on a nonemergent basis. Heterogeneous appearance of the prostate gland, with ill-defined hyperenhancement in the superolateral aspect of the right portion of the gland. Findings likely correspond to patient's history of prostate cancer. There is marked distention of the bladder, possibly related to prostate pathology. Osseous findings as described above are compatible with diffuse osseous metastatic disease. No acute fracture is identified. Trace fluid is demonstrated in the right inguinal canal. 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 Referrals: NO,LOCAL PHYSICIAN (PCP/Family) Primary Care Physician QASIM FORDE MD Jan 06, 2019 16:18
[2019-01-06] MEDS ORDERED: HOLD METFORMIN - RECEIVED CONTRAST 20 ML VIAL IV SCH (16:30)
[2019-01-06] MEDS ORDERED: IOHEXOL 350 MG/ML 150 ML (OMNIPAQUE 350) VIAL IV ONE (16:30)
[2019-01-06 17:17] LABS: BILIRUBIN,URINE NEGATIVE (NEGATIVE); CLARITY,URINE CLEAR; COLOR,URINE YELLOW; GLUCOSE, URINE (UA) NEGATIVE (NEGATIVE); KETONES,URINE NEGATIVE (NEGATIVE); LEUKOCYTE ESTERASE ,URINE NEGATIVE (NEGATIVE); NITRITE,URINE NEGATIVE (NEGATIVE); PH,URINE 5 (5-9); PROTEIN,URINE 3+ (NEGATIVE); UROBILINOGEN,URINE 1 MG/DL (NORMAL)
[2019-01-06 17:27] LABS: BACTERIA,URINE NEGATIVE /HPF; RBC,URINE 0-2 /HPF; WBC,URINE 0-2 /HPF
[2019-01-06] MEDS ORDERED: fentaNYL INJECTION 100 MCG/2 ML AMP IVP ONE (17:45)
[2019-01-06] MEDS ORDERED: PIPERACILLIN SODIUM/TAZOBACTAM 4.5 GM in NS (IVPB) 100 ML IV ONE (17:45)
--- NOTE | 2019-01-06 17:51 | Diagnostic Imaging Report ---
PROCEDURE: CT angiography of the chest with contrast and CT abdomen and pelvis with contrast. TECHNIQUE: Multiple contiguous axial images were obtained through the chest, abdomen and pelvis after administration of intravenous contrast. Reconstructed MIP CT angiography acquisitions of the aorta were then performed. Auto Exposure Controls were utilized during the CT exam to meet ALARA standards for radiation dose reduction. INDICATION: Inability to walk. Chest pain. Shortness of breath. Constipation. History of prostate cancer. COMPARISON: CT abdomen and pelvis performed on 03/22/2009. ANGIOGRAPHIC FINDINGS: The aorta is normal in course and caliber. There is no dissection, aneurysm, or ulcerated plaque. The great vessels are normal in course and caliber. No pulmonary embolism is identified. The pulmonary arteries are normal in caliber. There is stenosis noted at the origin of the superior mesenteric artery caused by calcified atherosclerotic plaque. The superior mesenteric artery remains patent. The celiac, renal arteries, and inferior mesenteric artery are patent. There is apparent origin of the gastroduodenal artery from the celiac access, a normal variant. FINDINGS - CHEST: TRACHEA AND MAIN BRONCHI: Layering mucoid material is demonstrated at the level of the kellie, extending into the right and left mainstem bronchi. There is mucus plugging demonstrated in the smaller airway supplying the right lower lobe. LUNGS AND PLEURA: Moderate upper lobe predominant centrilobular emphysematous change is demonstrated in both lungs, with bullous change noted in both lung apices. There is an irregular focal nodular area in the right lung apex adjacent to pleural parenchymal scarring. This measures approximately 6 mm (image 11 series 5). There is linear scarring noted in the right upper lobe adjacent to the major fissure. There is streaky consolidation in the right lower lobe in the region of mucus plugging. Trace pleural fluid is noted adjacent to this. No pneumothorax. MEDIASTINUM AND XUAN: Mild heterogeneity of the right thyroid lobe, with suggestion of subcentimeter low-attenuation nodules. No mediastinal or hilar lymphadenopathy. Esophagus is nondistended. HEART: Heart is normal in size. No pericardial effusion. DIAPHRAGM: Unremarkable. CHEST WALL: Unremarkable. FINDINGS - ABDOMEN AND PELVIS: LIVER: Marked heterogeneous appearance of the liver. There is suggestion of multiple ill-defined low-attenuation lesions scattered throughout the hepatic parenchyma. There is a well-circumscribed low-attenuation lesion in the inferior right hepatic lobe which is unchanged dating back to 2008 and compatible with a cyst. GALLBLADDER: Normal CT appearance. BILE DUCTS: No biliary ductal dilatation. SPLEEN: Heterogeneous attenuation, likely due to phase of contrast imaging. No focal lesion is seen. PANCREAS: Mildly atrophic, otherwise unremarkable. No pancreatic ductal dilatation. ADRENAL GLANDS: Mild bilateral adrenal thickening without discrete nodularity. KIDNEYS AND URETERS: No hydronephrosis. Kidneys enhance symmetrically. Subcentimeter right renal hypodensity, too small to characterize, but likely representing a cyst. No suspicious mass. The visualized ureters are normal. STOMACH AND BOWEL: Stomach is collapsed. No bowel obstruction. No inflammatory changes. There is colonic diverticulosis, without evidence of acute diverticulitis. APPENDIX: Normal. PELVIC ORGANS/BLADDER: There is marked distention of the bladder. No focal thickening or discrete mass is identified. No bladder calculus. The prostate gland is heterogeneous, with ill-defined hyperattenuation noted in the superolateral aspect of the gland. PERITONEUM AND RETROPERITONEUM: No pneumoperitoneum. No abdominal free fluid or loculated collection. LYMPH NODES: No lymphadenopathy. ABDOMINAL WALL: There is a small amount of fluid in the right inguinal canal. BONES: Generalized increased sclerosis of the visualized bones, with scattered discrete sclerotic and lytic lesions noted in the spine, sternum, and ribs. No fracture or acute osseous abnormality is noted. There is superior endplate depression involving the L2 vertebral body, likely representing a Schmorl's node. IMPRESSION: No acute aortic abnormality. No evidence of aortic dissection or aneurysm. No pulmonary embolism is identified. There is marked calcified atherosclerotic plaque at the origin of the superior mesenteric artery, however, the artery remains patent distal to the origin. There is debris in the airways at the level of the kellie extending into the right and left mainstem bronchi, with mucus plugging noted in the right lower lobe. There is ill-defined streaky opacity in the right lower lobe in the region of mucus plugging. Pneumonia is a consideration for this finding. There is adjacent trace pleural fluid. There is a 6 mm spiculated nodule in the right lung apex. This may be related to scarring. Given patient's history of prostate cancer, consideration can be given to followup CT scan in 12 months to demonstrate stability. Recommendations are per Fleischner Society guidelines for followup of incidental pulmonary nodules (Radiology, 2017 Quirino;284(1):228-243). Subcentimeter low-attenuation thyroid nodules in the right thyroid lobe. These are of doubtful clinical significance. Dedicated thyroid ultrasound can be performed on a nonemergent basis, as indicated. Marked heterogeneity of the hepatic parenchyma. Although this may be at least in part due to phase of contrast imaging, overall findings are concerning for metastatic disease. This can be further evaluated with hepatic protocol MRI or CT scan on a nonemergent basis. Heterogeneous appearance of the prostate gland, with ill-defined hyperenhancement in the superolateral aspect of the right portion of the gland. Findings likely correspond to patient's history of prostate cancer. There is marked distention of the bladder, possibly related to prostate pathology. Osseous findings as described above are compatible with diffuse osseous metastatic disease. No acute fracture is identified. Trace fluid is demonstrated in the right inguinal canal. Dictated by: Dictated on workstation # [id number]
[2019-01-06] MEDS ORDERED: NOREPINEPHRINE 4 MG in NS (IVPB) 250 ML IV SCH (19:28)
[2019-01-06] MEDS ORDERED: NS IV 1000 ML 1,000 ML ONE (19:29)
[2019-01-06] MEDS ORDERED: VANCOMYCIN 1500 MG/NS 500 ML IVPB IV NR ×2 (19:30)
[2019-01-06] MEDS ORDERED: NS IV ONE (19:30)
--- NOTE | 2019-01-06 19:30 | NUR ---
KAIDEN TREVIZO] admitted to room CU12-1, with an admitting diagnosis of RLL PNE, on 01/06/19 from ED via , accompanied by .KAIDEN TREVIZO introduced to surroundings, call light, bed controls, phone, TV, temperature control, lights, meal times, smoking policy, visitor policy, side rail policy, bathrooms and showers. Patient Rights given to patient in the handbook.KAIDEN TREVIZO verbalizes understanding that [facility] is not responsible for the loss or damage to any personal effects or valuables that are kept in the patients posession during their hospitalization. The following Patient Care Plans were discussed with the : Discharge Planning, ,, and . KAIDEN TREVIZO verbalizes understanding of Interdisciplinary Patient Education. Patient and/or family were informed about the Rapid Response Team and its purpose.
--- NOTE | 2019-01-06 19:34 | NUR ---
CR 0.64; CR CL > 80; WT 57 KG; VANCO 1500 MG IV BOLUS THEN 1000 MG IV Q12H X 3 DAYS
[2019-01-06] MEDS: NS IV 1000 ML 1,000 ML IV SCH ×3 (19:39→23:23)
[2019-01-06 19:40] VITALS: BP 132/76
[2019-01-06] MEDS ORDERED: ONDANSETRON 4 MG/2 ML (SDV) Z0FRAN IV PRN (19:45)
[2019-01-06] MEDS ORDERED: CATHETER FLUSH 10 ML SYR IV PRN (19:45)
[2019-01-06 20:00] VITALS: BP 99/61
--- NOTE | 2019-01-06 20:33 | NUR ---
NO CODE STATUS ON BRIDGE ORDERS. THIS RN DISCUSSED CODE STATUS WITH PATIENT, PT WISHES TO BE A DNR. NOTIFIED DR LION. ORDER OBTAINED FOR DNR STATUS
[2019-01-06 21:00] VITALS: BP 109/68
[2019-01-06] MEDS: morphine IMMEDIATE RELEASE 15 MG TABLET PO PRN (21:43)
[2019-01-06 21:54] VITALS: BP 104/75
[2019-01-06 22:00] VITALS: BP 118/72
[2019-01-06] MEDS ORDERED: RT-ALBUTEROL/IPRATROPIUM 3 ML (DUONEB) VIAL ONE (22:24)
[2019-01-06] MEDS: RT-ALBUTEROL/IPRATROPIUM 3 ML (DUONEB) VIAL INH SCH (22:31)
[2019-01-06 23:00] VITALS: BP 113/64
[2019-01-07] VITALS (15 sets, daily range): BP systolic 103–140; BP diastolic 60–85
[2019-01-07] MEDS ORDERED: PIPERACILLIN/TAZO 4.5 GM/NS 100 ML IV SCH ×2
[2019-01-07] MEDS ORDERED: RT-ALBUTEROL/IPRATROPIUM 3 ML (DUONEB) VIAL INH PRN ×2
[2019-01-07] MEDS: fentaNYL INJECTION 100 MCG/2 ML AMP IV PRN ×2 (00:17→04:16)
[2019-01-07] MEDS: RT-ALBUTEROL/IPRATROPIUM 3 ML (DUONEB) VIAL INH SCH ×5 (01:07→18:37)
[2019-01-07 04:18] LABS: BASOPHILS % (AUTO) 0 % (0-10); EOSINOPHILS % (AUTO) 0 % (0-10); HEMATOCRIT 27 % (40-54); HEMOGLOBIN 8.6 G/DL (13.3-17.7); LYMPHOCYTES # (AUTO) 0.5 X 10^3 (1.0-4.0); LYMPHOCYTES % (AUTO) 8 % (12-44); MEAN CORPUSCULAR HEMOGLOBIN 28 PG (25-34); MEAN CORPUSCULAR HGB CONC 32 G/DL (32-36); MEAN CORPUSCULAR VOLUME 88 FL (80-99); MEAN PLATELET VOLUME 9.3 FL (7.4-10.4); MONOCYTES # (AUTO) 0.7 X 10^3 (0.0-1.0); MONOCYTES % (AUTO) 11 % (0-12); NEUTROPHILS # (AUTO) 5.2 X 10^3 (1.8-7.8); NEUTROPHILS % (AUTO) 81 % (42-75); PLATELET COUNT 155 10^3/uL (130-400); WHITE BLOOD COUNT 6.4 10^3/uL (4.3-11.0)
[2019-01-07 04:42] LABS: ALANINE AMINOTRANSFERASE 24 U/L (0-55); ALBUMIN 2.8 GM/DL (3.2-4.5); ALKALINE PHOSPHATASE 245 U/L (40-136); BILIRUBIN,TOTAL 0.5 MG/DL (0.1-1.0); BUN/CREATININE RATIO 13; CALCIUM 7.6 MG/DL (8.5-10.1); CARBON DIOXIDE 25 MMOL/L (21-32); CHLORIDE 96 MMOL/L (98-107); CREATININE SERUM 0.61 MG/DL (0.60-1.30); GFR ESTIMATED > 60; GLUCOSE 108 MG/DL (70-105); MAGNESIUM 1.8 MG/DL (1.8-2.4); PHOSPHORUS 1.6 MG/DL (2.3-4.7); POTASSIUM 3.1 MMOL/L (3.6-5.0); SODIUM 133 MMOL/L (135-145); TOTAL PROTEIN 5.8 GM/DL (6.4-8.2)
[2019-01-07] MEDS ORDERED: KCL 20 MEQ TAB (K-DUR) PO ONE ×2 (05:00→09:00)
[2019-01-07] MEDS ORDERED: POTASSIUM PHOSPHATE INJ 30 MM in NS (IVPB) 250 ML IV ONE (05:00)
[2019-01-07] MEDS ORDERED: methylPREDNISolone 125 MG (Solu-MEDROL) VIAL IVP ONE (05:00)
--- NOTE | 2019-01-07 05:00 | Pulmonary Consultation ---
History of Present Illness History of Present Illness Date of Consultation 01/07/19 04:55 Time Seen by Provider: 04:55 Date of Admission History of Present Illness 63yo with hx of metastatic prostate cancer presented to ED secondary to severe sharp 10/10 worsening pelvic pain weakness and worsening SOB. Onset was 2-3 days ago. PT is unable to walk secondary to weakness. Pt see's Dr. Fernandez and he radiation therapy was being considered. SP02 was 78 % yesterday. PT and are interested in hospice care. He does not normally have oxygen. He has also had decreased appetite. Denies fever, NS, chills, No cough. No Nausea/ Vomiting. I am consulted for pulmonary/CC management. Allergies and Home Medications Allergies Coded Allergies: No Known Drug Allergies (Unverified , 01/06/19) Home Medications Morphine Sulfate 15 Mg Tablet, 15 MG PO Q6H PRN for PAIN-SEVERE, (Reported) Ondansetron HCl 8 Mg Tablet, 8 MG PO Q8H PRN for NAUSEA/VOMITING-1ST LINE, ( Reported) Oxycodone HCl/Acetaminophen 1 Each Tablet, 1 TAB PO Q6H PRN for PAIN-MODERATE, ( Reported) Past Ecwxfsg-Sbihhi-Dbalxh Hx Past Med/Social Hx: Reviewed Nursing Past Med/Soc Hx Patient Social History Alcohol Use: Denies Use Recreational Drug Use: No Smoking Status: Former Smoker Former Smoker, Quit: Nov 05, 2017 Recent Foreign Travel: No Contact w/Someone Who Travel: No Recent Infectious Disease Expo: No Recent Hopitalizations: No Physical Abuse: No Sexual Abuse: No Mistreated: No Fear: No Seasonal Allergies Seasonal Allergies: No Past Medical History Surgeries: No Respiratory: No Cardiac: No Neurological: No Genitourinary: No Gastrointestinal: No Musculoskeletal: No Endocrine: No HEENT: No Cancer: Yes Prostate Psychosocial: No Integumentary: No Blood Disorders: No Adverse Reaction/Blood Tranf: No Family Medical History Reviewed Nursing Family Hx Review of Systems Time Seen by Provider: 07:19 Sepsis Event Evaluation Height, Weight, BMI Height: 6'0.00" Weight: 130lbs. 0.0oz. 58.608679ax; 17.6 BMI Method:Stated Exam Exam Vital Signs Date Time Temp Pulse Resp B/P (MAP) Pulse Ox O2 Delivery O2 Flow Rate FiO2 01/07/19 04:00 97.6 01/07/19 04:00 100 OxyMask 2.00 01/07/19 03:00 61 113/66 (82) 92 OxyMask 2.00 01/07/19 02:00 93 130/73 (92) 92 OxyMask 2.00 01/07/19 01:08 98 Room Air 01/07/19 01:00 82 01/07/19 01:00 82 103/60 (74) 98 OxyMask 2.00 01/07/19 00:21 OxyMask 2.00 01/07/19 00:14 99.2 01/07/19 00:00 100 OxyMask 3.00 01/07/19 00:00 86 118/67 (84) 98 OxyMask 3.00 01/06/19 23:00 80 113/64 (80) 100 OxyMask 3.00 01/06/19 22:36 Nasal Cannula 4.00 01/06/19 22:31 100 Nasal Cannula 4.00 01/06/19 22:06 Nasal Cannula 4.00 01/06/19 22:00 76 12 118/72 (87) 100 OxyMask 3.00 01/06/19 21:54 90 98 36 01/06/19 21:00 71 17 109/68 (82) 100 OxyMask 3.00 01/06/19 20:00 74 18 99/61 (74) 100 OxyMask 3.00 01/06/19 19:45 100 Nasal Cannula 3.00 01/06/19 19:40 97.8 79 16 132/76 (94) Nasal Cannula 3.00 01/06/19 19:30 73 01/06/19 19:15 65 14 100/71 (81) 100 OxyMask 6.00 01/06/19 18:42 95 OxyMask 6.00 01/06/19 14:58 96.6 90 12 104/75 (85) 98 Nasal Cannula 4.00 I & O 01/07/19 07:00 Intake Total 2715 ml Balance 2715 ml Height & Weight Height: 6'0.00" Weight: 130lbs. 0.0oz. 58.730134rw; 17.6 BMI Method:Stated General Appearance: Anxious, Chronically ill, Mild Distress, Thin HEENT: PERRL/EOMI, Pharynx Normal Neck: Non Tender, Supple Respiratory: No Accessory Muscle Use, Crackles; No Wheezing (bilateral bases) Cardiovascular: Regular Rate, Rhythm, No Murmur Capillary Refill: Less Than 3 Seconds Extremity: Normal Range of Motion, Other (tender in the left pelvis area) Neurologic/Psychiatric: Alert, Oriented x3, No Motor/Sensory Deficits, Normal Mood/Affect Skin: Normal Color, Warm/Dry Lymphatic: No Adenopathy Results Lab Laboratory Tests 01/06/19 15:00 01/07/19 04:00 Assessment/Plan Assessment/Plan Metastatic prostate cancer with mets to bones -Follows with Dr. Fernandez -PT and are requesting hospice -Hospice is consulted for education. -Pain control COPDAE with mucous plugging - Doubt PNA (No leukocytosis, no fever) -D/C Abx -Will do bronchoscopy bedside in AM -Leave in ICU for bronchoscopy -Start Solumedrol 125mg IV X1 then 40 IV Q6 -IVF decrease to 100cc/hr Hypokalemia, hypophos -Replace Hyponatremia - Probably SIADH -Monitor Anemia - Monitor KIRK GARCIA DO Jan 07, 2019 05:00
[2019-01-07] MEDS ORDERED: morphine INJ 4 MG/ML 1 ML (VIAL/SYRINGE) ONE (05:31)
[2019-01-07] MEDS ORDERED: methylPREDNISolone 125 MG (Solu-MEDROL) VIAL ONE (05:31)
[2019-01-07] MEDS: morphine INJ 4 MG/ML 1 ML (VIAL/SYRINGE) IVP PRN ×3 (05:35→16:54)
[2019-01-07] MEDS ORDERED: VANCOMYCIN 1 GM/NS 250 ML IVPB IV SCH ×2 (07:30)
--- NOTE | 2019-01-07 07:54 | Diagnostic Imaging Report ---
INDICATION: Metastatic prostate cancer. Dyspnea. COMPARISON: 01/06/2019. FINDINGS: Patchy right basilar pulmonary opacities are unchanged. No pleural effusion or pneumothorax. Stable cardiomediastinal silhouette. Increased density throughout multiple thoracic vertebrae may relate to the known prostate metastasis. IMPRESSION: Stable exam without adverse development. Dictated by: Dictated on workstation # [id number]
[2019-01-07] MEDS ORDERED: ENOXAPARIN 40 MG/0.4 ML (LOVENOX) SYR SC SCH (09:00)
--- NOTE | 2019-01-07 09:16 | NUR ---
PATIENT STATES HE CURRENTLY IS ONLY TAKING HIS TWO PAIN MEDICATIONS AND THE NAUSEA MEDICATION. HE DOES NOT TAKE ANYTHING OTC. THE EXT MED HX SHOWS HE FILLED FINASTERIDE AND FLOMAX ON 12-11-18 HOWEVER HE STATES THOSE HAVE BEEN STOPPED. HE STATES DR. MULLIGAN HAS TALKED ABOUT PUTTING HIM ON A NEW MEDICATION BUT THAT HAS NOT HAPPENED YET.
--- NOTE | 2019-01-07 09:43 | NUR ---
Pt was initially seen at our Cancer Center January for newly diagnosed metastatic prostate cancer. He and his [place] in the [place] community of [place] near [place]. His continuing care needs have greatly increased recently with complaints of severe pain and during the past 5 days his reports she was unable to get him out of his recliner due to his pain. Home Health Care was ordered but prior to their visit pt was brought to our Emergency room with the aid of the local fire dept. Pt's has multiple health problems and is needing more assistance in the home. Hospice services has been discussed with pt and but they first want to know if treatment options have been exhausted. Will initiate a referral for [facility] which would provide additional in-home care through their [employer] car insurance.
[2019-01-07] MEDS ORDERED: RT-ALBUTEROL/IPRATROPIUM 3 ML (DUONEB) VIAL INH SCH (10:00)
--- NOTE | 2019-01-07 10:15 | History & Physical-Hospitalist ---
History of Present Illness HPI/Chief Complaint The patient is a 63-year-old white male with known metastatic carcinoma of the prostate. He has been seen by Dr. barajas in the cancer center. He was to have an appointment with Dr. Stubbs this week as he had been found to have metastasis to the pelvis. He reported that 3 weeks ago he was having minimum or no pain. Last week he began to have rather considerable pain which showed a really increased after . Yesterday he was unable to stand or walk and was taken by his brother to the emergency room. Workup there found him to have multiple metastases including the thoracic spine and the left sacrum. He states he is unable to move his legs at except by using his hands. Presently the pain is controlled by continuous release morphine plus IV acute boluses. He has not yet seen Dr. Stubbs. Date Seen 01/07/19 Time Seen by a Provider: 10:11 Attending Physician Ruth Ann Araujo MD PCP No,Local Physician Referring Physician Date of Admission Jan 06, 2019 at 17:35 Home Medications & Allergies Home Medications Reviewed patient Home Medication Reconciliation performed by pharmacy medication reconciliations respiratory support technician and/or nursing. Patients Allergies have been reviewed. Allergies Allergies Coded Allergies No Known Drug Allergies (Unverified01/06/19) Past Gfjkwfy-Epmtmv-Lxcdcv Hx Past Med/Social Hx: Reviewed Nursing Past Med/Soc Hx Patient Social History Alcohol Use: Denies Use Recreational Drug Use: No Smoking Status: Former Smoker Former Smoker, Quit: Nov 05, 2017 Recent Foreign Travel: No Contact w/other who traveled: No Recent Hopitalizations: No Recent Infectious Disease Expo: No Seasonal Allergies Seasonal Allergies: No Past Medical History Cancer: Prostate History of Blood Disorders: No Adverse Reaction to Blood Melendez: No Family History Reviewed Nursing Family Hx Review of Systems Constitutional: see HPI EENTM: no symptoms reported Respiratory: cough, dyspnea on exertion Cardiovascular: no symptoms reported Gastrointestinal: no symptoms reported Genitourinary: no symptoms reported Musculoskeletal: see HPI, back pain, muscle weakness Skin: no symptoms reported Psychiatric/Neurological: No Symptoms Reported Physical Exam Physical Exam Vital Signs Vital Signs - First Documented 01/06/19 01/06/19 14:58 21:54 Temp 96.6 Pulse 90 Resp 12 B/P (MAP) 104/75 (85) Pulse Ox 98 O2 Delivery Nasal Cannula O2 Flow Rate 4.00 FiO2 36 Capillary Refill : Less Than 3 SecondsLess Than 3 Seconds Height, Weight, BMI Height: 6'0.00" Weight: 130lbs. 0.0oz. 58.961580bc; 17.6 BMI Method:Stated General Appearance: Mild Distress, Moderate Distress Eyes: Bilateral Eye Normal Inspection HEENT: Normal ENT Inspection Neck: Full Range of Motion, Normal Inspection, Non Tender Respiratory: Chest Non Tender, Lungs Clear, Normal Breath Sounds, No Accessory Muscle Use, No Respiratory Distress Cardiovascular: Regular Rate, Rhythm, No Edema, No Gallop Gastrointestinal: Normal Bowel Sounds Extremity: Normal Capillary Refill, Normal Inspection, Normal Range of Motion Neurologic/Psychiatric: Alert Results Results/Procedures Labs Laboratory Tests 01/06/19 15:00 01/07/19 04:00 Patient resulted labs reviewed. Assessment/Plan Admission Diagnosis Carcinoma of the prostate. 2.multiple metastases to bone. 3.intractable pain. Admission Status: Inpatient Order (span 2 midnights) Reason for Inpatient Admission: Control of symptoms cannot be obtained in less than 48 hours. Assessment and Plan Consult oncology/radiation oncology. Aggressive treatment of pain. Clinical Quality Measures DVT/VTE Risk/Contraindication: Risk Factor Score Per Nursin RFS Level Per Nursing on Admit: 4+=Very High JOHN DOSS MD Jan 07, 2019 10:15
--- NOTE | 2019-01-07 11:35 | NUR ---
Pastoral care visit, pt shared story of his illness and his emotional state, he seems to be coping well.
--- NOTE | 2019-01-07 12:02 | NUR ---
PALLIATIVE CARE CONSULT received for this patient who has metastatic prostate CA with increasing pain and inability to care for self with assist. He reports that he would like to get stronger, and get better instead of worse. He would like to talk to the oncologist and the radiation oncologist to see what his options are. If he has no options then he would be willing to discuss the hospice benefit.
[2019-01-07] MEDS: NS IV 1000 ML 1,000 ML IV SCH ×2 (12:12→22:32)
[2019-01-07] MEDS: methylPREDNISolone 40 MG/ML (Solu-MEDROL) VIAL IV SCH ×2 (12:14→16:54)
--- NOTE | 2019-01-07 14:30 | NUR ---
Report called to FAINA Medina who will assume pt at time of pt transfer. Will await notification of 405 room clean to transfer pt.
--- NOTE | 2019-01-07 15:11 | NUR ---
Pt transferred to [facility] at this time via bed, accompanied by this RN and FAINA Shi. , Rita at bedside during transfer.
--- NOTE | 2019-01-07 15:15 | NUR ---
PATIENT IN ROOM 405 FROM ICU. REPORT RECEIVED FROM MEIR EISENBERG. PATIENT AT BEDSIDE. PATIENT ORIENTED TO ROOM, CALL LIGHT WITHIN REACH. WILL CONTINUE TO MONITOR.
[2019-01-07] MEDS: morphine IMMEDIATE RELEASE 15 MG TABLET PO PRN (20:27)
--- NOTE | 2019-01-07 20:59 | CONSULTATION REPORT ---
DATE OF SERVICE: 01/07/2019 The patient is admitted to room 405. PHYSICIAN REQUESTING CONSULTATION: Piter Lomax MD IMPRESSION: 1. A 63-year-old male with metastatic prostate cancer, who has been on complete androgen blockade for the last one year. Recent increase in low back pain with increasing PSA level, clinically consistent with progressive disease. 2. Significant increase in pain over the last week with the inability for the patient to walk. No bowel incontinence and no urinary symptoms. 3. Shortness of breath prior to admission, but better now. RECOMMENDATIONS: 1. Agree with aggressive pain management. Continue morphine 2 mg IV every 2 hours as needed to control the discomfort. If his requirement is more than this, he may need SUB MASTER with continuous infusion of morphine. 2. Agree with radiation oncology consultation for palliative radiation therapy to the lower spine. 3. May obtain a whole body bone scan to better delineate the lesion for radiation. 4. Once the pain is under control, the patient will need a systemic chemotherapy to control the disease. 5. Continue management of COPD as you are doing. 6. We will follow the patient with you. BRIEF HISTORY: The patient is a 63-year-old male with metastatic prostate cancer diagnosed in 12/2017. He has been on complete androgen blockade, but recently was having increasing PSA level as well as back pain. His treatment was recommended to be changed to oral chemotherapy using Zytiga plus prednisone and psychotherapist social worker have been working to obtain the medication. In the interim, his back pain worsened significantly and he presented to the emergency room with an inability to stand or walk. He denied any fecal incontinence or urinary problems. He was admitted to the hospital for pain control and further management. Medical oncology consultation was obtained for concurrent care. PAST MEDICAL HISTORY: Unremarkable with no major medical problems other than the diagnosis of prostate cancer in 12/2017. SOCIAL HISTORY: The patient lives with his significant other near [place], [place]. 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 He denied tobacco use or recreational drug use. FAMILY HISTORY: Significant for his father, who from prostate cancer while in his 60s. Mother with history of breast cancer. Brother with oropharyngeal cancer. PHYSICAL EXAMINATION: GENERAL: Today showed an elderly male, awake and oriented, in mild to moderate distress due to the pain. VITAL SIGNS: Temperature was 98.4, pulse rate of 77, respirations 18, blood pressure 140/70 with oxygen saturation of 94% on 2 liters of oxygen by nasal cannula. HEENT: Normocephalic with male pattern baldness, extraocular muscles intact. Conjunctivae slightly pale. Oral mucosa moist. NECK: Supple with no JVD. No cervical, supraclavicular or axillary lymphadenopathy palpable. CHEST: Symmetrical. LUNGS: Fairly clear to auscultation without wheezes or rales. CARDIOVASCULAR: Regular in rate and rhythm. No murmurs or gallops are heard. ABDOMEN: Soft, nontender with no hepatosplenomegaly or other masses palpable. EXTREMITIES: Showed no edema. NEUROLOGIC: Showed motor strength normal in both lower extremities, but the patient is not moving his lower extremities because of pain. There was no sensory loss in the lower extremities to light touch sensation. CBC done today showed white count of 6.4, hemoglobin 8.6, MCV 88, platelet count 155,000 with neutrophil count 5.2 and lymphocyte count 0.5. Chemistry panel showed sodium level of 133 and potassium 3.1. BUN was 8 and creatinine 0.61 with GFR more than 60 mL per minute. Nonfasting glucose was 108. Corrected calcium was 8.6. AST was minimally elevated at 38 and albumin 2.8 with the rest of liver function studies within normal limits. Alkaline phosphatase was 245. LDH was elevated at 773. Most recent PSA level from 01/02/2019 was 33.06. The patient had a CT scan of the chest, abdomen and pelvis done yesterday from the emergency room. This showed mucus plugging in the right lower lobe. Ill-defined streaky opacity in the right lower lobe, 6 mm spiculated nodule in the right lung apex, probably related to scarring, marked heterogeneity of the hepatic parenchyma concerning for metastatic disease. Heterogeneous appearance of prostate gland with ill-defined hyperenhancement in the superolateral aspect of the right portion of gland. Marked distention of the bladder, possibly related to prostate pathology. Diffuse osseous metastatic disease with no acute fracture identified. Trace fluid in the right inguinal canal. Thank you for allowing me to participate in this patient's care. I will follow the patient with you and make appropriate recommendations. Job ID: [id number] DocumentID: [id number] Dictated Date: 01/07/2019 17:32:46 Gum Worker Date: 01/07/2019 20:58:41 Dictated By: RAMYA BRITO MD [facility]
[2019-01-08] VITALS: BP 105/61
[2019-01-08] MEDS: methylPREDNISolone 40 MG/ML (Solu-MEDROL) VIAL IV SCH ×4 (02:56→18:16)
[2019-01-08] MEDS: morphine IMMEDIATE RELEASE 15 MG TABLET PO PRN ×4 (03:06→22:33)
[2019-01-08 04:00] VITALS: BP 132/71
[2019-01-08] MEDS: RT-ALBUTEROL/IPRATROPIUM 3 ML (DUONEB) VIAL INH SCH ×5 (06:26→22:56)
[2019-01-08 07:26] VITALS: BP 137/74
[2019-01-08] MEDS: ENOXAPARIN 30 MG/0.3 ML (LOVENOX) SYR SC SCH (08:52)
[2019-01-08] MEDS: NS IV 1000 ML 1,000 ML IV SCH ×2 (08:53→22:33)
--- NOTE | 2019-01-08 09:13 | Progress Note-Hospitalist ---
Subjective HPI/CC On Admission Date Seen by Provider: Jan 08, 2019 Time Seen by Provider: 09:30 The patient is a 63-year-old white male with known metastatic carcinoma of the prostate. He has been seen by Dr. barajas in the cancer center. He was to have an appointment with Dr. Stubbs this week as he had been found to have metastasis to the pelvis. He reported that 3 weeks ago he was having minimum or no pain. Last week he began to have rather considerable pain which showed a really increased after . Yesterday he was unable to stand or walk and was taken by his brother to the emergency room. Workup there found him to have multiple metastases including the thoracic spine and the left sacrum. He states he is unable to move his legs at except by using his hands. Presently the pain is controlled by continuous release morphine plus IV acute boluses. He has not yet seen Dr. Stubbs. Subjective/Events-last exam Pain is still a major issue Prostate CA with wide spread metastasis undergoing radiation treatment palliative from Dr. Stacy for severe back pain No BM for a couple of days so will initiate Lactulose and Senna Will provide a shower for him today Review of Systems General: Fatigue Gastrointestinal: Constipation Neurological: Weakness Focused Exam Lactate Level 01/06/19 15:00: Lactic Acid Level 1.34 Objective Exam Vital Signs Vital Signs Date Time Temp Pulse Resp B/P (MAP) Pulse Ox O2 Delivery O2 Flow Rate FiO2 01/08/19 16:00 98.3 88 20 158/86 (110) 93 Nasal Cannula 2.00 01/06/19 21:54 36 Capillary Refill : Less Than 3 SecondsLess Than 3 Seconds General Appearance: No Apparent Distress, WD/WN, Chronically ill, Cachetic, Thin HEENT: Normal ENT Inspection Neck: Full Range of Motion, Normal Inspection, Non Tender Respiratory: Chest Non Tender, Lungs Clear, Normal Breath Sounds, No Accessory Muscle Use, No Respiratory Distress Cardiovascular: Regular Rate, Rhythm, No Edema, No Gallop Gastrointestinal: Normal Bowel Sounds Back: Normal Inspection, No CVA Tenderness, No Vertebral Tenderness Extremity: Normal Capillary Refill, Normal Inspection, Normal Range of Motion Neurologic/Psychiatric: Alert, Oriented x3, No Motor/Sensory Deficits, Normal Mood/Affect, captain's assistant II-XII Norm as Tested Skin: Normal Color, Warm/Dry Lymphatic: No Adenopathy Results/Procedures Lab Patient resulted labs reviewed. Assessment/Plan Assessment and Plan Assess & Plan/Chief Complaint Assessment: Widespread prostate cancer Severe refractory pain Hyponatremia Hypokalemia Plan: Pain control BM regimen Shower today Radiation to spine Diagnosis/Problems Diagnosis/Problems (1) Prostate cancer metastatic to bone Status: Acute (2) COPD (chronic obstructive pulmonary disease) Status: Chronic Qualifiers: COPD type: unspecified COPD Qualified Codes: J44.9 - Chronic obstructive pulmonary disease, unspecified (3) Oxygen dependent Status: Acute (4) Constipation by delayed colonic transit Status: Acute (5) Frailty Status: Chronic Clinical Quality Measures DVT/VTE Risk/Contraindication: Risk Factor Score Per Nursin RFS Level Per Nursing on Admit: 4+=Very High HILLARY JIMENEZ DO Jan 08, 2019 09:13
[2019-01-08] MEDS: morphine INJ 4 MG/ML 1 ML (VIAL/SYRINGE) IVP PRN ×4 (10:03→20:42)
--- NOTE | 2019-01-08 10:10 | NUR ---
Patient off floor to cancer center at this time.
--- NOTE | 2019-01-08 10:36 | NUR ---
Palliative Care RN in to see patient. He reports that Dr. Yost wants to see if he has a chemotherapy that will slow the cancer down. He is to see Dr. Stubbs this morning. Stacy CASTELLANOS Navigator is also working them in regards to continued care. She reports that they have visited with [facility] prior to this admission.
--- NOTE | 2019-01-08 11:30 | Consultation ---
History of Present Illness History of Present Illness Patient Consulted On(uyen/time) 01/08/19 10:00 Date Seen by Provider: Jan 08, 2019 Time Seen by Provider: 10:00 Reason for Visit: palliative xrt for pain History of Present Illness -Mr. Sotelo is a 63 y/o white male [place], [place] resident with metastatic prostate cancer diagnosed 12/2017. He presented to [facility] ED on with uncontrolled low back/bilateral hip pain to the point he was unable to walk. He was admitted for pain control and further evaluation. No bowel incontinence or urinary symptoms. -He has been on CAB/ADT for the past year. -Recent increase in PSA level and low back pain. -Medical oncologist, Dr. Yost, was corporate relations manager and consulted. Agreed with aggressive pain management and rad onc referral for palliative xrt. Once pain under control he will need systemic chemotherapy. -A radiation oncology consult was made for evaluation and consideration of palliative xrt; ;thus, my visit with the patient today. Allergies and Home Medications Allergies Coded Allergies: No Known Drug Allergies (Unverified , 01/06/19) Home Medications Morphine Sulfate 15 Mg Tablet, 15 MG PO Q6H PRN for PAIN-SEVERE, (Reported) Ondansetron HCl 8 Mg Tablet, 8 MG PO Q8H PRN for NAUSEA/VOMITING-1ST LINE, ( Reported) Oxycodone HCl/Acetaminophen 1 Each Tablet, 1 TAB PO Q6H PRN for PAIN-MODERATE, ( Reported) Patient Home Medication List Home Medication List Reviewed: Yes Past Qobdnzq-Mvgbic-Qxdtpk Hx Past Med/Social Hx: Reviewed Nursing Past Med/Soc Hx Patient Social History Alcohol Use: Denies Use Recreational Drug Use: No Smoking Status: Former Smoker Former Smoker, Quit: Nov 05, 2017 Recent Foreign Travel: No Contact w/Someone Who Travel: No Recent Infectious Disease Expo: No Recent Hopitalizations: No Physical Abuse: No Sexual Abuse: No Mistreated: No Fear: No Seasonal Allergies Seasonal Allergies: No Past Medical History Surgeries: No Respiratory: No Cardiac: No Neurological: No Genitourinary: No Gastrointestinal: No Musculoskeletal: No Endocrine: No HEENT: No Cancer: Yes Prostate Psychosocial: No Integumentary: No Blood Disorders: No Adverse Reaction/Blood Tranf: No Family Medical History Reviewed Nursing Family Hx Review of Systems-General Constitutional: weakness EENTM: no symptoms reported Respiratory: other (O2 per N/C) Cardiovascular: no symptoms reported Gastrointestinal: no symptoms reported Genitourinary: no symptoms reported Musculoskeletal: back pain, other (bilateral hip pain - reports pain so bad makes it difficult sleep and walk. Pain med is somewhat better with pain med.) Skin: no symptoms reported Psychiatric/Neurological: No Symptoms Reported Physical Exam-General Problems Physical Exam Vital Signs Vital Signs - First Documented 01/06/19 01/06/19 14:58 21:54 Temp 96.6 Pulse 90 Resp 12 B/P (MAP) 104/75 (85) Pulse Ox 98 O2 Delivery Nasal Cannula O2 Flow Rate 4.00 FiO2 36 Capillary Refill : Less Than 3 SecondsLess Than 3 Seconds General Appearance: WD/WN, moderate distress (with any movement the patient is having pain in the pelvis - main area), thin Eyes: Bilateral Eye PERRL Respiratory: no respiratory distress Back: other (pelvis pain) Neurologic/Psychiatric: application manager II-XII nml as tested, alert, oriented x 3 Skin: normal color Assessment/Plan Assessment/Plan Admission Diagnosis/Plan RLL pneumonia widespread metastatic prostate cancer uncontrolled pain Plan: -The patient was offered a 3 week course of palliative xrt to the pelvis for pain control. -We would attempt to deliver 30 Gy / 15 fxs utilizing a 3D conformal treatment technique. -The acute toxicities, terminal makeup operator complications, logistics and hoped for benefit of xrt was explained to the patient. -He stated understanding the information given to him today. -All questions answered to his satisfaction. -He did wish to proceed. -A treatment planning ct simulation to be performed today. -We will initiate his course of palliative xrt on tomorrow 01/09/19. Clinical Quality Measures DVT/VTE Risk/Contraindication: Risk Factor Score Per Nursin RFS Level Per Nursing on Admit: 4+=Very High SB FRAUSTO MD Jan 08, 2019 11:30
[2019-01-08 11:33] VITALS: BP 156/72
--- NOTE | 2019-01-08 13:10 | NUR ---
PATIENT OFF FLOOR TO MRI
--- NOTE | 2019-01-08 14:01 | NUR ---
patient was taken down to for a MRI and was taken down on RA and when he got back to his room they did not put the O2 back on patient: When RT entered the patients room he was at 82% on RA, once O2 was placed back on patient his O2 Sat came up.
--- NOTE | 2019-01-08 14:05 | Progress Note-Standard ---
Standard Progress Note Progress Notes/Assess & Plan Date Seen by a Provider: Jan 08, 2019 Time Seen by a Provider: 10:45 Progress/Assessment & Plan Patient is a 63 yo male with widely metastatic prostate cancer who was admitted on 01/06/19 with uncontrolled lower back, pelvis and bilateral leg pain. He was being treated with androgen deprivation therapy for close to a year but recently had biochemical and symptomatic progression. He had a significant amount of nausea with hydrocodone and oxycodone, so he was to try morphine IR. He was also to be started on new androgen blockade medication and was to have repeat staging scans prior to admission. We will plan to do some restaging imaging during this hospitalization. When he was initially admitted, patient was found to be hypoxic and had evidence of mucous plugging of airways on imaging, so bronchoscopy was done. He is being treated for pneumonia currently. This morning, patient is feeling better but still has severe pain with movement of his lower body. He is on 2L of supplemental O2 by SC. Currently he takes MS IR and solu-meddrol every 6 hours reliably. While he was in the ICU for bronchoscopy, he received morphine 4mg IV and became very somnolent, so his breakthrough pain medication was reduced to 2mg every 2 hours prn. He is doing better with this regimen and only took 3 doses of IV morphine since last night. He is noted to have abdominal distension without tenderness on exam; it is important for patient to have a regular bowel regimen due to his significant opiate requirements. Patient has seen radiation oncology, and hopefully focal treatment will be able to reduce his pain medication requirements. For now, continue with current opiate regimen. We will plan to transition to long acting morphine plan at some point. Will continue to follow. Focused Exam Lactate Level 01/06/19 15:00: Lactic Acid Level 1.34 FUENTES MULLIGAN MD Jan 08, 2019 14:05
[2019-01-08 16:00] VITALS: BP 158/86
--- NOTE | 2019-01-08 16:08 | Diagnostic Imaging Report ---
INDICATION: Prostate carcinoma, bilateral thigh pain. COMPARISON: No prior bone scans are available for comparison. Comparison is made with recent CT from 01/06/2019. EXAMINATION: Whole body bone scan. FINDINGS: There is abnormal uptake involving the axial and appendicular skeleton. There appears to be significant diminished activity within bilateral kidneys as well as the soft tissues consistent with a "SuperScan". This is consistent with widespread osseous metastatic disease. There appears to be uptake involving bilateral femoral heads. There is uptake in the proximal and mid shaft of the right humerus. There is also some uptake in the region of the proximal left humerus. Bilateral rib and spinal uptake is seen. IMPRESSION: Findings suggestive of widespread osseous metastatic disease, correlating with the findings noted on CT study two days earlier. Dictated by: Dictated on workstation # [id number]
[2019-01-08 20:00] VITALS: BP 160/84
[2019-01-08] MEDS: DOCUSATE SODIUM 100 MG (COLACE) CAP PO SCH (20:45)
[2019-01-08] MEDS: POLYETHYLENE GLYCOL 17 GM (MIRALAX) PACK PO SCH (21:01)
[2019-01-09] MEDS: methylPREDNISolone 40 MG/ML (Solu-MEDROL) VIAL IV SCH ×4 (00:03→18:56)
[2019-01-09 00:05] VITALS: BP 169/85
[2019-01-09] MEDS: ALPRAZolam 0.5 MG (XANAX) TAB PO PRN (00:19)
[2019-01-09] MEDS: morphine INJ 4 MG/ML 1 ML (VIAL/SYRINGE) IVP PRN ×4 (00:21→16:30)
[2019-01-09] MEDS: RT-ALBUTEROL/IPRATROPIUM 3 ML (DUONEB) VIAL INH SCH ×4 (02:46→20:04)
[2019-01-09] MEDS: morphine IMMEDIATE RELEASE 15 MG TABLET PO PRN ×3 (04:42→21:29)
[2019-01-09 04:51] VITALS: BP 166/79
[2019-01-09 08:00] VITALS: BP 181/83
--- NOTE | 2019-01-09 08:07 | NUR ---
RADIATION TREATMENT #1 OF 15 WAS DELIVERED TODAY AT 8:08 AM
[2019-01-09] MEDS: NS IV 1000 ML 1,000 ML IV SCH ×2 (08:40→18:57)
[2019-01-09] MEDS: ENOXAPARIN 30 MG/0.3 ML (LOVENOX) SYR SC SCH (08:47)
[2019-01-09] MEDS: DOCUSATE SODIUM 100 MG (COLACE) CAP PO SCH ×2 (08:47→21:29)
--- NOTE | 2019-01-09 09:22 | Progress Note-Hospitalist ---
Subjective HPI/CC On Admission Date Seen by Provider: Jan 09, 2019 Time Seen by Provider: 09:15 The patient is a 63-year-old white male with known metastatic carcinoma of the prostate. He has been seen by Dr. barajas in the cancer center. He was to have an appointment with Dr. Stubbs this week as he had been found to have metastasis to the pelvis. He reported that 3 weeks ago he was having minimum or no pain. Last week he began to have rather considerable pain which showed a really increased after . Yesterday he was unable to stand or walk and was taken by his brother to the emergency room. Workup there found him to have multiple metastases including the thoracic spine and the left sacrum. He states he is unable to move his legs at except by using his hands. Presently the pain is controlled by continuous release morphine plus IV acute boluses. He has not yet seen Dr. Stubbs. Subjective/Events-last exam Patient still constipated Continues to appear disheveled and I asked for shower to be completed yesterday but this planned for today Will order Dulcolax suppository and soapsuds enema and mag citrate He was using Metamucil at home Review of Systems Gastrointestinal: Constipation Musculoskeletal: back pain Focused Exam Lactate Level 01/06/19 15:00: Lactic Acid Level 1.34 Objective Exam Vital Signs Vital Signs Date Time Temp Pulse Resp B/P (MAP) Pulse Ox O2 Delivery O2 Flow Rate FiO2 01/09/19 09:45 86 96 28 01/09/19 08:00 97.6 20 181/83 (115) Nasal Cannula 2.00 Capillary Refill : Less Than 3 SecondsLess Than 3 Seconds General Appearance: No Apparent Distress, WD/WN, Chronically ill, Cachetic, Thin HEENT: Normal ENT Inspection Neck: Full Range of Motion, Normal Inspection, Non Tender Respiratory: Chest Non Tender, Lungs Clear, Normal Breath Sounds, No Accessory Muscle Use, No Respiratory Distress Cardiovascular: Regular Rate, Rhythm, No Edema, No Gallop Gastrointestinal: Normal Bowel Sounds Back: Normal Inspection, No CVA Tenderness, No Vertebral Tenderness Extremity: Normal Capillary Refill, Normal Inspection, Normal Range of Motion Neurologic/Psychiatric: Alert, Oriented x3, No Motor/Sensory Deficits, Normal Mood/Affect, 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 Assessment/Plan Assessment and Plan Assess & Plan/Chief Complaint Assessment: Widespread prostate cancer Severe refractory pain Hyponatremia Hypokalemia Severe constipation Plan: Pain control BM regimen increase meds Shower today Radiation to spine Diagnosis/Problems Diagnosis/Problems (1) Prostate cancer metastatic to bone Status: Acute (2) COPD (chronic obstructive pulmonary disease) Status: Chronic Qualifiers: COPD type: unspecified COPD Qualified Codes: J44.9 - Chronic obstructive pulmonary disease, unspecified (3) Oxygen dependent Status: Acute (4) Constipation by delayed colonic transit Status: Acute (5) Frailty Status: Chronic Clinical Quality Measures DVT/VTE Risk/Contraindication: Risk Factor Score Per Nursin RFS Level Per Nursing on Admit: 4+=Very High HILLARY JIMENEZ DO Jan 09, 2019 09:22
[2019-01-09] MEDS ORDERED: MAGNESIUM CITRATE 300 ML BTL PO NR (11:45)
[2019-01-09] MEDS ORDERED: BISACODYL 10 MG SUPP (DULCOLAX) PR ONE (11:45)
[2019-01-09 12:00] VITALS: BP 165/73
[2019-01-09 15:42] VITALS: BP 160/81
--- NOTE | 2019-01-09 17:24 | Progress Note-Standard ---
Standard Progress Note Progress Notes/Assess & Plan Date Seen by a Provider: Jan 09, 2019 Time Seen by a Provider: 17:18 Progress/Assessment & Plan Patient is a 63 yo male with widely metastatic prostate cancer who was admitted on 01/06/19 with uncontrolled lower back, pelvis and bilateral leg pain. He was being treated with androgen deprivation therapy for close to a year but recently had biochemical and symptomatic progression. He had a significant amount of nausea with hydrocodone and oxycodone, so he was to try morphine IR. He was also to be started on new androgen blockade medication and was to have repeat staging scans prior to admission. When he was initially admitted, patient was found to be hypoxic and had evidence of mucous plugging of airways on imaging, so bronchoscopy was done. He is being treated for pneumonia currently. Today, patient reports two bowel movements, which has improved his overall sense of wellbeing. He has taken two MS IR since this morning and only three doses of IV morphine. He has been able to stand for a short while with support from his upper body, but this is still improved from yesterday. He received his first radiation treatment this morning. He continues to have soft abdominal distension without tenderness on exam, and he is still on O2 by [place]. I encouraged him to be more aggressive with pain meds so that he can increase his activity. Since he has not maxed on out his current opiate regimen, I do not think there is any need to start long acting morphine at this time. Perhaps he will have significant reduction in pain after a couple of radiation treatments. Will continue to follow. FUENTES MULLIGAN MD Jan 09, 2019 17:24
[2019-01-09 19:25] VITALS: BP 153/87
[2019-01-09] MEDS: POLYETHYLENE GLYCOL 17 GM (MIRALAX) PACK PO SCH (21:30)
[2019-01-10] MEDS: ALPRAZolam 0.5 MG (XANAX) TAB PO PRN
[2019-01-10] MEDS: morphine INJ 4 MG/ML 1 ML (VIAL/SYRINGE) IVP PRN ×3 (00:01→20:26)
[2019-01-10 00:10] VITALS: BP 111/74
[2019-01-10] MEDS: RT-ALBUTEROL/IPRATROPIUM 3 ML (DUONEB) VIAL INH SCH ×4 (02:35→20:32)
[2019-01-10] MEDS: NS IV 1000 ML 1,000 ML IV SCH ×3 (04:59→14:52)
[2019-01-10] MEDS: methylPREDNISolone 40 MG/ML (Solu-MEDROL) VIAL IV SCH ×5 (06:05→23:23)
[2019-01-10 08:00] VITALS: BP 120/68
[2019-01-10] MEDS: DOCUSATE SODIUM 100 MG (COLACE) CAP PO SCH ×2 (08:39→20:17)
[2019-01-10] MEDS: ENOXAPARIN 30 MG/0.3 ML (LOVENOX) SYR SC SCH (08:39)
--- NOTE | 2019-01-10 11:38 | Progress Note-Hospitalist ---
Subjective HPI/CC On Admission Date Seen by Provider: Jan 10, 2019 Time Seen by Provider: 11:30 The patient is a 63-year-old white male with known metastatic carcinoma of the prostate. He has been seen by Dr. barajas in the cancer center. He was to have an appointment with Dr. Stubbs this week as he had been found to have metastasis to the pelvis. He reported that 3 weeks ago he was having minimum or no pain. Last week he began to have rather considerable pain which showed a really increased after . Yesterday he was unable to stand or walk and was taken by his brother to the emergency room. Workup there found him to have multiple metastases including the thoracic spine and the left sacrum. He states he is unable to move his legs at except by using his hands. Presently the pain is controlled by continuous release morphine plus IV acute boluses. He has not yet seen Dr. Stubbs. Subjective/Events-last exam Patient may be confused because it appears he has not had a BM but then he tells other nurses he has SSE ordered Pain is controlled Getting shower today after I have asked him to take a shower the past 3 days Review of Systems Musculoskeletal: back pain Objective Exam Vital Signs Vital Signs Date Time Temp Pulse Resp B/P (MAP) Pulse Ox O2 Delivery O2 Flow Rate FiO2 01/10/19 09:00 97 OxyMask 3.00 01/10/19 00:10 97.9 104 20 111/74 (86) 01/09/19 09:45 28 Capillary Refill : Less Than 3 SecondsLess Than 3 Seconds General Appearance: No Apparent Distress, WD/WN, Chronically ill, Cachetic, Thin HEENT: Normal ENT Inspection Neck: Full Range of Motion, Normal Inspection, Non Tender Respiratory: Chest Non Tender, Lungs Clear, Normal Breath Sounds, No Accessory Muscle Use, No Respiratory Distress Cardiovascular: Regular Rate, Rhythm, No Edema, No Gallop Gastrointestinal: Normal Bowel Sounds Back: Normal Inspection, No CVA Tenderness, No Vertebral Tenderness Extremity: Normal Capillary Refill, Normal Inspection, Normal Range of Motion Neurologic/Psychiatric: Alert, Oriented x3, No Motor/Sensory Deficits, Normal Mood/Affect, 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 Assessment/Plan Assessment and Plan Assess & Plan/Chief Complaint Assessment: Widespread prostate cancer Severe refractory pain Hyponatremia Hypokalemia Severe constipation Confusion? Plan: Pain control BM regimen increase meds Shower today Radiation to spine Diagnosis/Problems Diagnosis/Problems (1) Prostate cancer metastatic to bone Status: Acute (2) COPD (chronic obstructive pulmonary disease) Status: Chronic Qualifiers: COPD type: unspecified COPD Qualified Codes: J44.9 - Chronic obstructive pulmonary disease, unspecified (3) Oxygen dependent Status: Acute (4) Constipation by delayed colonic transit Status: Acute (5) Frailty Status: Chronic Clinical Quality Measures DVT/VTE Risk/Contraindication: Risk Factor Score Per Nursin RFS Level Per Nursing on Admit: 4+=Very High HILLARY JIMENEZ DO Jan 10, 2019 11:38
[2019-01-10] MEDS: morphine IMMEDIATE RELEASE 15 MG TABLET PO SCH ×3 (11:47→23:24)
--- NOTE | 2019-01-10 12:57 | Progress Note-Standard ---
Standard Progress Note Progress Notes/Assess & Plan Date Seen by a Provider: Jan 10, 2019 Time Seen by a Provider: 12:15 Progress/Assessment & Plan Patient is a 63 yo male with widely metastatic prostate cancer who was admitted on 01/06/19 with uncontrolled lower back, pelvis and bilateral leg pain. He was being treated with androgen deprivation therapy for close to a year but recently had biochemical and symptomatic progression. He had a significant amount of nausea with hydrocodone and oxycodone, so he was to try morphine IR. He was also to be started on new androgen blockade medication and was to have repeat staging scans prior to admission. When he was initially admitted, patient was found to be hypoxic and had evidence of mucous plugging of airways on imaging, so bronchoscopy was done. He was given antibiotics empirically for pneumonia but there was no further signs of infection, so antibiotics were discontinued. He received his first palliative radiation treatment on 01/09/19. This morning, patient reports difficulty with having bowel movements. He was supported to the bedside commode but became faint and collapsed. He was extremely short of breath and he was put on a venturi mask. His pain has been well controlled at rest but he still has excruciating pain with movement, to the point where his legs buckle and he almost "blacks out." He has been taking MSIR only every 8 hours and reports pain up to 10/10 when he does request it. He also sparingly uses morphine IV, with the last doses being at midnight last night and 4-5pm yesterday afternoon. He continues to have soft abdominal distension without tenderness on exam. There have been no reports of somnolence since his bronchoscopy, his pain is still poorly controlled, and he has not been requesting pain meds when he needs them. We will schedule his MSIR every 6 hours with intention to transition to 12 hour dosing at some point. We want to achieve adequate pain control (5/10) while he is ambulatory, not while at rest. No change to IV morphine prn. Patient told he could have IV morphine more often. I also instructed patient to stop refusing his Miralax, and he agreed to try it. Will continue to follow. FUENTES MULLIGAN MD Jan 10, 2019 12:57
--- NOTE | 2019-01-10 15:50 | NUR ---
Provided emotional and spiritual support to pt's , Rita, who shared about her parent's . Facilitated continued bereavement process through empathic listening and compassionate presence. She shared about the challenges of their failing health. 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 She said "The worst thing is watching him suffer and not being able to do anything about it." Following our conversation, Rita requested my business card and commented, "It was good to talk. I feel like all this weight has eased a little. Sometimes it just helps to get it out."
[2019-01-10 16:25] VITALS: BP 106/63
[2019-01-10 19:15] VITALS: BP 122/76
[2019-01-10] MEDS: POLYETHYLENE GLYCOL 17 GM (MIRALAX) PACK PO SCH (20:20)
[2019-01-11] VITALS: BP 118/69
[2019-01-11] MEDS: NS IV 1000 ML 1,000 ML IV SCH (01:40)
[2019-01-11] MEDS: RT-ALBUTEROL/IPRATROPIUM 3 ML (DUONEB) VIAL INH SCH ×4 (02:57→21:25)
[2019-01-11] MEDS: morphine IMMEDIATE RELEASE 15 MG TABLET PO SCH ×2 (05:55→11:11)
[2019-01-11] MEDS: methylPREDNISolone 40 MG/ML (Solu-MEDROL) VIAL IV SCH ×4 (05:55→23:30)
[2019-01-11] MEDS: ENOXAPARIN 30 MG/0.3 ML (LOVENOX) SYR SC SCH (07:51)
[2019-01-11] MEDS: DOCUSATE SODIUM 100 MG (COLACE) CAP PO SCH ×2 (07:51→21:30)
[2019-01-11 08:00] VITALS: BP 136/89
[2019-01-11] MEDS: morphine INJ 4 MG/ML 1 ML (VIAL/SYRINGE) IVP PRN ×3 (09:17→21:30)
--- NOTE | 2019-01-11 11:10 | Progress Note-Hospitalist ---
Subjective HPI/CC On Admission Date Seen by Provider: Jan 11, 2019 Time Seen by Provider: 10:30 The patient is a 63-year-old white male with known metastatic carcinoma of the prostate. He has been seen by Dr. barajas in the cancer center. He was to have an appointment with Dr. Stubbs this week as he had been found to have metastasis to the pelvis. He reported that 3 weeks ago he was having minimum or no pain. Last week he began to have rather considerable pain which showed a really increased after . Yesterday he was unable to stand or walk and was taken by his brother to the emergency room. Workup there found him to have multiple metastases including the thoracic spine and the left sacrum. He states he is unable to move his legs at except by using his hands. Presently the pain is controlled by continuous release morphine plus IV acute boluses. He has not yet seen Dr. Stubbs. Subjective/Events-last exam Patient complains primarily of constipation and being very dyspneic with any movement. He is extremely short of breath but very very talkative today. Review of Systems Pulmonary: Dyspnea Gastrointestinal: Constipation Neurological: Weakness (eft leg greater than right) Objective Exam Vital Signs Vital Signs Date Time Temp Pulse Resp B/P (MAP) Pulse Ox O2 Delivery O2 Flow Rate FiO2 01/11/19 16:00 98.0 85 20 132/75 (94) 96 Nasal Cannula 2.00 01/09/19 09:45 28 Capillary Refill : Less Than 3 SecondsLess Than 3 Seconds General Appearance: No Apparent Distress, WD/WN, Chronically ill, Cachetic, Thin HEENT: Normal ENT Inspection Neck: Full Range of Motion, Normal Inspection, Non Tender Respiratory: Chest Non Tender, Lungs Clear, Normal Breath Sounds, No Accessory Muscle Use, No Respiratory Distress Cardiovascular: Regular Rate, Rhythm, No Edema, No Gallop Gastrointestinal: Normal Bowel Sounds Back: Normal Inspection, No CVA Tenderness, No Vertebral Tenderness Extremity: Normal Capillary Refill, Normal Inspection, Normal Range of Motion Neurologic/Psychiatric: Alert, Oriented x3, No Motor/Sensory Deficits, Normal Mood/Affect, 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 Assessment/Plan Assessment and Plan Assess & Plan/Chief Complaint 1. Metastatic cancer the prostate with left leg weakness I'm not sure that an MRI has been doneto evaluate further for the left leg weakness-would defer to radiation oncology and oncology on this as I'm sure it's been done as an outpatient 2. Shortness of breath we'll recheck a chest x-ray Hep-Lock IV fluids and recheck labs in the morning. 3. History of right lower lobe pneumonia-n IV Solu-Medrol but no antibiotics at this time Clinical Quality Measures DVT/VTE Risk/Contraindication: Risk Factor Score Per Nursin RFS Level Per Nursing on Admit: 4+=Very High JOSEPH LORENZO MD Jan 11, 2019 11:10
--- NOTE | 2019-01-11 11:54 | Progress Note-Standard ---
Standard Progress Note Progress Notes/Assess & Plan Date Seen by a Provider: Jan 11, 2019 Time Seen by a Provider: 11:48 Progress/Assessment & Plan Patient is a 63 yo male with widely metastatic prostate cancer who was admitted on 01/06/19 with uncontrolled lower back, pelvis and bilateral leg pain. He was being treated with androgen deprivation therapy for close to a year but recently had biochemical and symptomatic progression. He had a significant amount of nausea with hydrocodone and oxycodone, so he was to try morphine IR. He was also to be started on new androgen blockade medication and was to have repeat staging scans prior to admission. When he was initially admitted, patient was found to be hypoxic and had evidence of mucous plugging of airways on imaging, so bronchoscopy was done. He was given antibiotics empirically for pneumonia but there was no further signs of infection, so antibiotics were discontinued. He received his first palliative radiation treatment on 01/09/19. Patient had a large watery BM this morning and feels overall better. His generalized aches and pains are improved. He still has a considerable amount of pelvis/back/leg pain with movement and needs full assistance to transfer. He has only taken morphine IV twice since last night. He continues to have soft abdominal distension without tenderness on exam. He has tolerated scheduled MS IR very well with no evidence of somnolence. We will start MS ER 15mg q8h tonight and leave MS IR and morphine IV as breakthrough. Continue with aggressive bowel regimen. Will continue to follow. FUENTES MULLIGAN MD Jan 11, 2019 11:54
--- NOTE | 2019-01-11 12:05 | Diagnostic Imaging Report ---
PATIENT HISTORY: Shortness of breath. TECHNIQUE: 2 views of the chest COMPARISON: 01/07/2019 FINDINGS: Mild airspace opacities are seen in the right lung base and the left midlung. There are small bilateral pleural effusions. No pneumothorax is seen. The cardiac silhouette is stable in size. There is diffuse heterogeneous density throughout the spine, consistent with history of metastatic disease. IMPRESSION: 1. New small bilateral pleural effusions. 3. Airspace opacities in the right lung base and left midlung. This may be due to developing infiltrate. Dictated by: Dictated on workstation # [id number]
[2019-01-11] MEDS: ALPRAZolam 0.5 MG (XANAX) TAB PO PRN (14:20)
[2019-01-11 16:00] VITALS: BP 132/75
[2019-01-11] MEDS: morphine ER 15 MG (MS CONTIN) TAB PO SCH ×2 (18:35→23:30)
[2019-01-11 20:00] VITALS: BP 127/74
[2019-01-11] MEDS: POLYETHYLENE GLYCOL 17 GM (MIRALAX) PACK PO SCH ×2 (21:30)
[2019-01-12 00:17] VITALS: BP 128/74
[2019-01-12] MEDS: RT-ALBUTEROL/IPRATROPIUM 3 ML (DUONEB) VIAL INH SCH ×3 (03:26→18:22)
[2019-01-12] MEDS: morphine INJ 4 MG/ML 1 ML (VIAL/SYRINGE) IVP PRN ×4 (04:45→23:30)
[2019-01-12] MEDS: morphine ER 15 MG (MS CONTIN) TAB PO SCH ×3 (06:10→21:17)
[2019-01-12] MEDS: methylPREDNISolone 40 MG/ML (Solu-MEDROL) VIAL IV SCH ×4 (06:10→23:30)
[2019-01-12 06:32] LABS: BASOPHILS % (AUTO) 0 % (0-10); EOSINOPHILS % (AUTO) 0 % (0-10); HEMATOCRIT 30 % (40-54); HEMOGLOBIN 9.5 G/DL (13.3-17.7); LYMPHOCYTES # (AUTO) 0.6 X 10^3 (1.0-4.0); LYMPHOCYTES % (AUTO) 5 % (12-44); MEAN CORPUSCULAR HEMOGLOBIN 28 PG (25-34); MEAN CORPUSCULAR HGB CONC 32 G/DL (32-36); MEAN CORPUSCULAR VOLUME 89 FL (80-99); MEAN PLATELET VOLUME 10.8 FL (7.4-10.4); MONOCYTES # (AUTO) 0.5 X 10^3 (0.0-1.0); MONOCYTES % (AUTO) 4 % (0-12); NEUTROPHILS # (AUTO) 10.4 X 10^3 (1.8-7.8); NEUTROPHILS % (AUTO) 91 % (42-75); PLATELET COUNT 213 10^3/uL (130-400); RED CELL DISTRIBUTION WIDTH 16.5 % (10.0-14.5); WHITE BLOOD COUNT 11.4 10^3/uL (4.3-11.0)
[2019-01-12 06:53] LABS: ALANINE AMINOTRANSFERASE 56 U/L (0-55); ALBUMIN 2.7 GM/DL (3.2-4.5); ALKALINE PHOSPHATASE 224 U/L (40-136); BILIRUBIN,TOTAL 0.3 MG/DL (0.1-1.0); BUN/CREATININE RATIO 31; CALCIUM 8.1 MG/DL (8.5-10.1); CARBON DIOXIDE 25 MMOL/L (21-32); CHLORIDE 101 MMOL/L (98-107); CREATININE SERUM 0.55 MG/DL (0.60-1.30); GFR ESTIMATED > 60; GLUCOSE 121 MG/DL (70-105); POTASSIUM 4.5 MMOL/L (3.6-5.0); SODIUM 136 MMOL/L (135-145)
[2019-01-12 08:00] VITALS: BP 130/81
[2019-01-12] MEDS: DOCUSATE SODIUM 100 MG (COLACE) CAP PO SCH ×2 (08:09→21:17)
[2019-01-12] MEDS: POLYETHYLENE GLYCOL 17 GM (MIRALAX) PACK PO SCH ×2 (08:10→21:17)
[2019-01-12] MEDS: ENOXAPARIN 30 MG/0.3 ML (LOVENOX) SYR SC SCH (08:10)
[2019-01-12] MEDS: morphine IMMEDIATE RELEASE 15 MG TABLET PO PRN ×2 (08:11→15:27)
[2019-01-12] MEDS: ALPRAZolam 0.5 MG (XANAX) TAB PO PRN (11:26)
[2019-01-12] MEDS ORDERED: FUROSEMIDE 40 MG/4 ML INJ (LASIX) IVP NR (11:38)
--- NOTE | 2019-01-12 11:38 | Progress Note-Hospitalist ---
Subjective HPI/CC On Admission Date Seen by Provider: Jan 12, 2019 Time Seen by Provider: 09:15 The patient is a 63-year-old white male with known metastatic carcinoma of the prostate. He has been seen by Dr. barajas in the cancer center. He was to have an appointment with Dr. Stubbs this week as he had been found to have metastasis to the pelvis. He reported that 3 weeks ago he was having minimum or no pain. Last week he began to have rather considerable pain which showed a really increased after . Yesterday he was unable to stand or walk and was taken by his brother to the emergency room. Workup there found him to have multiple metastases including the thoracic spine and the left sacrum. He states he is unable to move his legs at except by using his hands. Presently the pain is controlled by continuous release morphine plus IV acute boluses. He has not yet seen Dr. Stubbs. Subjective/Events-last exam Patient continues to feel like he could have a better bowel movement. Pain is somewhat improved after being started on MS Contin yesterday and immediate release morphine but still is having quite a bit of pain. BMP was found to be elevated, chest x-ray shows possible infiltrates. Review of Systems Pulmonary: Dyspnea Neurological: Weakness Objective Exam Vital Signs Vital Signs Date Time Temp Pulse Resp B/P (MAP) Pulse Ox O2 Delivery O2 Flow Rate FiO2 01/12/19 09:36 94 Nasal Cannula 2.00 01/12/19 08:00 98.2 84 22 130/81 (97) 01/09/19 09:45 28 Capillary Refill : Less Than 3 SecondsLess Than 3 Seconds General Appearance: No Apparent Distress, WD/WN, Chronically ill, Cachetic, Thin HEENT: Normal ENT Inspection Neck: Full Range of Motion, Normal Inspection, Non Tender Respiratory: Chest Non Tender, Lungs Clear, Normal Breath Sounds, No Accessory Muscle Use, No Respiratory Distress Cardiovascular: Regular Rate, Rhythm, No Edema, No Gallop Gastrointestinal: Normal Bowel Sounds Back: Normal Inspection, No CVA Tenderness, No Vertebral Tenderness Extremity: Normal Capillary Refill, Normal Inspection, Normal Range of Motion Neurologic/Psychiatric: Alert, Oriented x3, No Motor/Sensory Deficits, Normal Mood/Affect, 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 Assessment/Plan Assessment and Plan Assess & Plan/Chief Complaint 1. Metastatic cancer the prostate with left leg weakness I'm not sure that an MRI has been done to evaluate further for the left leg weakness-would defer to radiation oncology and oncology on this as I'm sure it's been done as an outpatient 2. Shortness of breath we'll recheck a chest x-ray Hep-Lock IV fluids and recheck labs in the morning. Begin PT was elevated will give 1 dose of Lasix. 3. History of right lower lobe pneumonia-n IV Solu-Medrol but no antibiotics at this time 4. Chronic constipation on MiraLAX twice a day and when necessary enemas 5. Improved pain control will but will increase MS Contin to 20 mg every 8 hours Clinical Quality Measures DVT/VTE Risk/Contraindication: Risk Factor Score Per Nursin RFS Level Per Nursing on Admit: 4+=Very High JOSEPH LORENZO MD Jan 12, 2019 11:38
--- NOTE | 2019-01-12 12:22 | Progress Note-Standard ---
Standard Progress Note Progress Notes/Assess & Plan Date Seen by a Provider: Jan 12, 2019 Time Seen by a Provider: 12:15 Progress/Assessment & Plan Patient is a 63 yo male with widely metastatic prostate cancer who was admitted on 01/06/19 with uncontrolled lower back, pelvis and bilateral leg pain. He was being treated with androgen deprivation therapy for close to a year but recently had biochemical and symptomatic progression. He had a significant amount of nausea with hydrocodone and oxycodone, so he was to try morphine IR. He was also to be started on new androgen blockade medication and was to have repeat staging scans prior to admission. When he was initially admitted, patient was found to be hypoxic and had evidence of mucous plugging of airways on imaging, so bronchoscopy was done. He was given antibiotics empirically for pneumonia but there was no further signs of infection, so antibiotics were discontinued. He received his first palliative radiation treatment on 01/09/19. Patient is still distended and has had small BM since yesterday. His generalized aches and pains are improved but nursing reports he is not requesting pain meds on his own. He still has a considerable amount of pelvis/ back/leg pain with movement and needs full assistance to transfer. Most of his pain is in his left leg. He has taken morphine IV three times since last night and MS IR only once this morning. Patient's greatest concern this morning is his worsening shortness of breath, which causes him to feel faint and weak when he gets up to use the commode or bathroom. He continues to have soft abdominal distension without tenderness on exam. He has decreased breath sounds particularly in the right base and 1+ pitting edema of his legs. He has tolerated scheduled MS ER very well with no evidence of somnolence but he is not using his breakthrough medication as often as he could. He does not appear to have adequate pain control. Continued to encourage patient to use breakthrough meds. Continue with aggressive bowel regimen. MRI lumbar spine was ordered on 01/08/19 but patient was unable to have the exam secondary to uncontrolled pain and inability to maintain supine position. Once his pain is improved, consider re-ordering MRI. Also consider tapering IV steroids to PO, but may defer that to after he has more radiation treatments. Primary care is diuresing patient for fluid overload and monitoring for potential development of pneumonia. Will continue to follow. FUENTES MULLIGAN MD Jan 12, 2019 12:22
[2019-01-12] MEDS ORDERED: morphine ER 15 MG (MS CONTIN) TAB PO SCH (14:00)
[2019-01-12] MEDS ORDERED: morphine ER 15 MG (MS CONTIN) TAB PO ONE (14:11)
[2019-01-12 16:00] VITALS: BP 135/76
--- NOTE | 2019-01-12 18:25 | NUR ---
SPO2 87% ON ROOM AIR @ REST. REPLACED O2 @ 2 LPM. SPO2 INCREASED TO 90%.
[2019-01-13 00:13] VITALS: BP 123/73
[2019-01-13] MEDS: morphine IMMEDIATE RELEASE 15 MG TABLET PO PRN (00:49)
[2019-01-13] MEDS: morphine ER 15 MG (MS CONTIN) TAB PO SCH ×3 (06:40→21:16)
[2019-01-13] MEDS: methylPREDNISolone 40 MG/ML (Solu-MEDROL) VIAL IV SCH ×3 (06:40→18:03)
[2019-01-13 07:33] VITALS: BP 147/71
[2019-01-13] MEDS: morphine INJ 4 MG/ML 1 ML (VIAL/SYRINGE) IVP PRN (07:50)
--- NOTE | 2019-01-13 08:00 | NUR ---
RADIATION TREATMENT #2 OF 15 DELIVERED AT 8:00 AM.
[2019-01-13] MEDS: DOCUSATE SODIUM 100 MG (COLACE) CAP PO SCH ×2 (08:10→21:11)
[2019-01-13] MEDS: ENOXAPARIN 30 MG/0.3 ML (LOVENOX) SYR SC SCH (08:10)
[2019-01-13] MEDS: POLYETHYLENE GLYCOL 17 GM (MIRALAX) PACK PO SCH ×2 (08:11→21:12)
[2019-01-13] MEDS: RT-ALBUTEROL/IPRATROPIUM 3 ML (DUONEB) VIAL INH SCH ×3 (14:33→20:03)
--- NOTE | 2019-01-13 15:52 | NUR ---
pt willing to accept placement at a local assisted for continued care. Contacted [facility] about possible placement. will follow and assist.
[2019-01-13 16:00] VITALS: BP 145/79
[2019-01-13 23:15] VITALS: BP 155/84
[2019-01-14] MEDS: methylPREDNISolone 40 MG/ML (Solu-MEDROL) VIAL IV SCH ×4 (00:28→19:02)
[2019-01-14] MEDS: morphine ER 15 MG (MS CONTIN) TAB PO SCH ×3 (06:16→21:29)
[2019-01-14 07:21] VITALS: BP 134/78
[2019-01-14] MEDS: morphine INJ 4 MG/ML 1 ML (VIAL/SYRINGE) IVP PRN (07:48)
--- NOTE | 2019-01-14 08:01 | NUR ---
RADIATION TREATMENT # 3 OF 15 WAS DELIVERED TODAY AT 8:01
--- NOTE | 2019-01-14 08:49 | NUR ---
Awaiting [facility] review and decision of acceptance.
[2019-01-14] MEDS: RT-ALBUTEROL/IPRATROPIUM 3 ML (DUONEB) VIAL INH SCH ×3 (10:05→19:23)
[2019-01-14] MEDS: POLYETHYLENE GLYCOL 17 GM (MIRALAX) PACK PO SCH ×2 (10:55→21:30)
[2019-01-14] MEDS: DOCUSATE SODIUM 100 MG (COLACE) CAP PO SCH ×2 (10:55→21:28)
[2019-01-14] MEDS: ENOXAPARIN 30 MG/0.3 ML (LOVENOX) SYR SC SCH (10:55)
--- NOTE | 2019-01-14 11:35 | Progress Note-Hospitalist ---
Progress Note Progress Notes/Assess & Plan Date Seen 01/14/19 Time Seen by Provider: 11:31 Assessment & Plan The patient reports that by and large he is doing better with pain. He has been able to get out of bed into the bedside commode by himself. He is receiving radiation and states that he is to have a total of 17 treatments. He reports that he seems to sleep a lot. We discussed the strategy with regard to continuous release morphine plus the use of immediate release for breakthrough pain. By judicious use of this he should be able to get better pain relief when he wishes to be active and need less medication at other times. We also discussed the importance of treating constipation before becoming impacted. Physical exam: He has much brighter and obviously more comfortable than when I admitted him last week. He is coming to a better understanding of his disease. Lungs are clear to auscultation. CV is regular. Impression: Aggressive and metastatic carcinoma of the prostate. 2.significant bone pain secondary to number 1. Plan: hvac services professional is coordinating his needs for possible discharge tomorrow. JOHN DOSS MD Jan 14, 2019 11:35
--- NOTE | 2019-01-14 14:00 | NUR ---
Pastoral care visit.
[2019-01-14 15:45] VITALS: BP 111/57
--- NOTE | 2019-01-14 16:44 | NUR ---
[facility] reviewing pt's information and interviewed pt today. They have concern that they will be unable to manage his pain. Pt states that the 2 hour pain injections have really improved his pain control but still complains of intermittent breakthrough pain today. NO decision from [facility] yet but should have definite decision by .
[2019-01-14] MEDS: morphine IMMEDIATE RELEASE 15 MG TABLET PO PRN (19:02)
[2019-01-14 23:54] VITALS: BP 150/77
[2019-01-15] MEDS: methylPREDNISolone 40 MG/ML (Solu-MEDROL) VIAL IV SCH ×2 (00:13→05:52)
[2019-01-15] MEDS: morphine ER 15 MG (MS CONTIN) TAB PO SCH (05:53)
[2019-01-15] MEDS: morphine INJ 4 MG/ML 1 ML (VIAL/SYRINGE) IVP PRN (07:33)
--- NOTE | 2019-01-15 07:59 | NUR ---
RADIATION TREATMENT #4 OF 15 DELIVERED TODAY AT 8:00 AM.
[2019-01-15 08:00] VITALS: BP 140/68
[2019-01-15] MEDS: POLYETHYLENE GLYCOL 17 GM (MIRALAX) PACK PO SCH (09:05)
[2019-01-15] MEDS: DOCUSATE SODIUM 100 MG (COLACE) CAP PO SCH (09:05)
[2019-01-15] MEDS: ENOXAPARIN 30 MG/0.3 ML (LOVENOX) SYR SC SCH (09:06)
--- NOTE | 2019-01-15 09:29 | NUR ---
DISCHARGE PLANNING: This PC RN got in touch with Martina at [facility] who reports that they have accepted the patient. I have contacted [facility] for discharge orders and he reports an arrival time at 10wit the plan to work on this patient first. Transportation is set up for 11:30. FAINA David is aware and will work to have him showered and ready for transport.
[2019-01-15] MEDS: RT-ALBUTEROL/IPRATROPIUM 3 ML (DUONEB) VIAL INH SCH (09:36)
[2019-01-15] MEDS ORDERED: MORP-33 PO (10:31)
[2019-01-15] MEDS ORDERED: MORP15TA PO (10:32)
--- NOTE | 2019-01-15 10:39 | Discharge Inst-Simple/Standard ---
Discharge Inst-Standard Patient Instructions/Follow Up Plan of Care/Instructions/FU: The patient has aggressive prostate cancer metastatic to the bones. He is taking radiation to the spine for palliation of pain. This will continue at 0 800 tomorrow and Sunday through Sunday for a total of 11 more treatment. Morphine has been provided for his pain relief. Careful attention to his bowel status is necessary to avoid obstipation. For now he should take MiraLAX in liquid of choice twice daily. He has required oxygen at 2 L by nasal cannula. Encourage him to sit up and take deep breaths. Activity as Tolerated: Yes Goal: Comfort in his terminal illness Discharge Diet: No Restrictions Return to The Hospital For: Radiation treatment JOHN DOSS MD Jan 15, 2019 10:39
--- NOTE | 2019-01-15 10:54 | Progress Note-Hospitalist ---
Progress Note Progress Notes/Assess & Plan Date Seen 01/15/19 Time Seen by Provider: 10:52 Assessment & Plan The patient reports that he has had 3 bowel movements today and is feeling much better. He is eager to make transition to [facility]. He is to continue his radiation therapy beginning at 0800 tomorrow and continuing for 11 doses total. He feels that his present morphine regimen is working quite well. Physical exam: Lungs are clear to auscultation. CV is regular without murmur. Abdomen is much softer. There is no tenderness palpation. Impression: Aggressive prostate carcinoma with multiple metastases to bone. Plan: See discharge sequence for medications and routines at [facility] JOHN DOSS MD Jan 15, 2019 10:54
[2019-01-15] MEDS ORDERED: PRD20T PO (11:01)
--- NOTE | 2019-01-15 11:10 | NUR ---
DISCHARGE PLANNING: I faxed the unfinalized discharge orders to [facility]. Signed scripts are in the red discharge folder. Nurse to place her finalized orders in the red folder fr delivery to [facility]. Transportation still planned for 11:30.
--- NOTE | 2019-01-16 17:02 | Physician Query Clarification ---
PQ-Conflicting Diagnosis Admission/Discharge Admission Date: Jan 06, 2019 at 17:35 Discharge Date: Jan 15, 2019 at 11:50 The medical record reflects the following clinical scenario: History/Risk Factors: weakness, SOB, low O2 sats Clinical Findings: chest xray showed opacity in RLL Treatment: antibiotics started and then stopped Question: Do you agree with the impression of the lobar pneumonia per Dr. Bonilla. Please document a response below. PHYSICIAN RESPONSE Do you agree w/Consulting Dx?: Clinically undetermined In responding to this query, please exercise your independent professional judgment. The purpose of this communication is to more accurately reflect the complexity of your patients condition. The fact that a question is asked does not imply that any particular answer is desired or expected. Thank you for your timely response to this clarification. Requestors name: [ ] Phone # [ ] THIS PHYSICIAN QUERY FORM IS A PERMANENT PART OF THE MEDICAL RECORD LIZBET FELICIANO Jan 16, 2019 17:02 HILLARY JIMENEZ DO Jan 16, 2019 18:32
== END 2019-01-15 11:50 | DRG 543 ==
LOC: EDUNIT# 14:47 → ER 14:50 → ICU 17:35 → 4TH 01-07 15:28
PROVIDERS: ADMIT Family Medicine; ATTEND Internal Medicine
DX: C79.51 Secondary malignant neoplasm of bone (principal); C61 Malignant neoplasm of prostate; G89.3 Neoplasm related pain (acute) (chronic); J44.1 Chronic obstructive pulmonary disease with (acute) exacerbation; E22.2 Syndrome of inappropriate secretion of antidiuretic hormone; J98.09 Other diseases of bronchus, not elsewhere classified; Z66 Do not resuscitate; E87.6 Hypokalemia; E83.39 Other disorders of phosphorus metabolism; D64.9 Anemia, unspecified; K59.01 Slow transit constipation; Z87.891 Personal history of nicotine dependence; Z99.81 Dependence on supplemental oxygen
CPT/HCPCS: 36415; 71045; 71046; 71275; 74174; 77290; 77295; 77300; 77334; 77417; 78306; 80053; 81000; 83605; 83615; 83735; 83880; 84100; 85025; 85610; 85730; 87040; 87081; 87088; 94640; 94664; 94760; 96361; 96365; 96375; 96376; 99201

== ENCOUNTER 2019-02-19 15:02 | Outpatient (RCR) | payer MEDICAID, OTHER ==
[2019-01-02 11:04] LABS: BASOPHILS % (AUTO) 0 % (0-10); EOSINOPHILS % (AUTO) 0 % (0-10); HEMATOCRIT 34 % (40-54); HEMOGLOBIN 11.3 G/DL (13.3-17.7); LYMPHOCYTES # (AUTO) 0.9 X 10^3 (1.0-4.0); LYMPHOCYTES % (AUTO) 15 % (12-44); MEAN CORPUSCULAR HEMOGLOBIN 29 PG (25-34); MEAN CORPUSCULAR HGB CONC 33 G/DL (32-36); MEAN CORPUSCULAR VOLUME 87 FL (80-99); MEAN PLATELET VOLUME 9.3 FL (7.4-10.4); MONOCYTES # (AUTO) 0.3 X 10^3 (0.0-1.0); MONOCYTES % (AUTO) 5 % (0-12); NEUTROPHILS # (AUTO) 4.7 X 10^3 (1.8-7.8); NEUTROPHILS % (AUTO) 79 % (42-75); PLATELET COUNT 371 10^3/uL (130-400); RED CELL DISTRIBUTION WIDTH 15.1 % (10.0-14.5); WHITE BLOOD COUNT 5.9 10^3/uL (4.3-11.0)
[2019-01-02 11:30] LABS: ALANINE AMINOTRANSFERASE 26 U/L (0-55); ALBUMIN 3.5 GM/DL (3.2-4.5); ALKALINE PHOSPHATASE 232 U/L (40-136); BILIRUBIN,TOTAL 0.1 MG/DL (0.1-1.0); BUN/CREATININE RATIO 24; CALCIUM 8.5 MG/DL (8.5-10.1); CARBON DIOXIDE 22 MMOL/L (21-32); CHLORIDE 107 MMOL/L (98-107); CREATININE SERUM 0.68 MG/DL (0.60-1.30); GFR ESTIMATED > 60; GLUCOSE 123 MG/DL (70-105); POTASSIUM 2.7 MMOL/L (3.6-5.0); SODIUM 140 MMOL/L (135-145); TOTAL PROTEIN 6.7 GM/DL (6.4-8.2)
[2019-02-05 15:42] LABS: BASOPHILS % (AUTO) 0 % (0-10); EOSINOPHILS % (AUTO) 0 % (0-10); HEMATOCRIT 34 % (40-54); LYMPHOCYTES # (AUTO) 0.4 X 10^3 (1.0-4.0); LYMPHOCYTES % (AUTO) 8 % (12-44); MEAN CORPUSCULAR HEMOGLOBIN 29 PG (25-34); MEAN CORPUSCULAR HGB CONC 33 G/DL (32-36); MEAN CORPUSCULAR VOLUME 89 FL (80-99); MEAN PLATELET VOLUME 10.2 FL (7.4-10.4); MONOCYTES # (AUTO) 0.4 X 10^3 (0.0-1.0); MONOCYTES % (AUTO) 9 % (0-12); NEUTROPHILS # (AUTO) 4.1 X 10^3 (1.8-7.8); NEUTROPHILS % (AUTO) 83 % (42-75); PLATELET COUNT 197 10^3/uL (130-400); RED CELL DISTRIBUTION WIDTH 21.7 % (10.0-14.5); WHITE BLOOD COUNT 4.9 10^3/uL (4.3-11.0)
[2019-02-05 16:06] LABS: ALANINE AMINOTRANSFERASE 36 U/L (0-55); ALBUMIN 3.4 GM/DL (3.2-4.5); ALKALINE PHOSPHATASE 347 U/L (40-136); BILIRUBIN,TOTAL 1.3 MG/DL (0.1-1.0); BUN/CREATININE RATIO 18; CALCIUM 7.8 MG/DL (8.5-10.1); CARBON DIOXIDE 23 MMOL/L (21-32); CHLORIDE 95 MMOL/L (98-107); CREATININE SERUM 0.62 MG/DL (0.60-1.30); GFR ESTIMATED > 60; GLUCOSE 100 MG/DL (70-105); POTASSIUM 4.3 MMOL/L (3.6-5.0); SODIUM 132 MMOL/L (135-145); TOTAL PROTEIN 6.3 GM/DL (6.4-8.2)
[~2019-02-19 15:02] MED LIST changes: +BICA50TA5; +DENOSUMAB 120 MG/1.7 ML (XGEVA) SQ SCH; +FINA5TAB6 PO; +MORP-33 PO; +MORP15TA PO; +ONDA8TAB12 PO; +OXYC-471 PO; +TAMS0.4C98 PO; +[UNRECOGNIZED DRUG - REMARK] SQ SCH; +[UNRECOGNIZED DRUG - REMARK] SQ SCH
[2019-02-19 15:42] LABS: BASOPHILS % (AUTO) 0 % (0-10); EOSINOPHILS % (AUTO) 1 % (0-10); HEMATOCRIT 36 % (40-54); HEMOGLOBIN 11.8 G/DL (13.3-17.7); LYMPHOCYTES # (AUTO) 0.7 X 10^3 (1.0-4.0); LYMPHOCYTES % (AUTO) 10 % (12-44); MEAN CORPUSCULAR HEMOGLOBIN 28 PG (25-34); MEAN CORPUSCULAR HGB CONC 32 G/DL (32-36); MEAN CORPUSCULAR VOLUME 88 FL (80-99); MEAN PLATELET VOLUME 9.4 FL (7.4-10.4); MONOCYTES # (AUTO) 0.6 X 10^3 (0.0-1.0); MONOCYTES % (AUTO) 9 % (0-12); NEUTROPHILS # (AUTO) 5.7 X 10^3 (1.8-7.8); NEUTROPHILS % (AUTO) 81 % (42-75); PLATELET COUNT 319 10^3/uL (130-400); RED CELL DISTRIBUTION WIDTH 23.2 % (10.0-14.5)
[2019-02-19 16:05] LABS: ALANINE AMINOTRANSFERASE 32 U/L (0-55); ALBUMIN 2.9 GM/DL (3.2-4.5); ALKALINE PHOSPHATASE 427 U/L (40-136); BUN/CREATININE RATIO 18; CALCIUM 7.9 MG/DL (8.5-10.1); CARBON DIOXIDE 28 MMOL/L (21-32); CHLORIDE 103 MMOL/L (98-107); CREATININE SERUM 0.55 MG/DL (0.60-1.30); GFR ESTIMATED > 60; GLUCOSE 72 MG/DL (70-105); POTASSIUM 2.9 MMOL/L (3.6-5.0); SODIUM 145 MMOL/L (135-145)
== END 2019-04-02 | disposition home or self-care (01) ==
LOC: ONC 15:02
PROVIDERS: ATTEND Internal Medicine Hematology & Oncology
DX: C61 Malignant neoplasm of prostate (principal); C79.51 Secondary malignant neoplasm of bone; Z79.899 Other long term (current) drug therapy
CPT/HCPCS: 36415; 77336; 77417; 80053; 84153; 85025; 96372; 96402; 99213